=== PATIENT | female | born 1945 | race Caucasian/White ===

== ENCOUNTER 2022-09-26 09:37 | Inpatient (IN) ==
[2022-09-26] MEDS ORDERED: SODIUM CHLORIDE 0.9% 1000ML 500 ML IV ONE ×2 (10:13→10:50)
[2022-09-26] MEDS ORDERED: ONDANSETRON INJ 2 MG/ML 2 ML VIAL IV STA (10:13)
[2022-09-26] MEDS ORDERED: fentaNYL citrate PF 100 MCG/2 ML VIAL IV PRN (10:13)
--- NOTE | 2022-09-26 10:30 | Emergency Department Note ---
Impression & Plan Atrial fibrillation with rapid ventricular response, Pulmonary edema, Pleural effusion, Closed rib fracture, Compression fracture of body of thoracic vertebra, Compression fracture of lumbar vertebra ED Provider Note NAME: CHEMA CAMP AGE: 77 SEX: F : 1945 ARRIVES VIA: Walk-In INFORMANT: Patient, the patient's significant other ED PROVIDER(S): Isiah Higgins DO CHIEF COMPLAINT: Chest pain HPI: The patient is a 77-year-old female who presented to the emergency department for an evaluation of chest pain. The patient states that she started noticing left-sided chest pain over the course of the last few days. She has a history of a fall over the last couple weeks. She was seen by her family doctor and had an outpatient CT without contrast. This did show left-sided rib fractures. The patient states that she had another fall over the last few days as well. In this fall she fell backwards since that time she has been having increasing shortness of breath as well as left-sided chest pain. The pain is reproducible. She has had no lower extremity swelling or pain. She has no difficulty ambulating. She has noticed some shortness of breath with exertion. There is been no hemoptysis. ROS: See above HPI for pertinent positives & negatives. A total of 10 systems reviewed and were otherwise negative. PAST MEDICAL HISTORY: See Below PAST SURGICAL HISTORY: See Below FAMILY HISTORY: See Below SOCIAL HISTORY: See Below HOME MEDICATIONS: See Below ALLERGIES: See Below VITALS: See Below PHYSICAL EXAMINATION: GENERAL: The patient is awake and alert. The patient is somewhat anxious appearing. EYES: The conjunctivae are clear. The pupils are round and reactive. EARS, NOSE, MOUTH AND THROAT: The nose is without any evidence of any deformity. NECK: The neck is nontender and supple. RESPIRATORY: Normal respiratory effort is noted there is no evidence of wheezing rhonchi or rales CARDIOVASCULAR: Tachycardic heart sounds were noted to auscultation. There is no definite murmur. GASTROINTESTINAL: The abdomen is soft. Abdomen is nontender. BACK: No midline tenderness or or step-off noted range of motion in flexion extension as well as rotation no signs of muscle spasm noted MUSCULOSKELETAL/EXTREMITIES: There is no evidence of gross deformity full range of motion is noted in the hips and shoulders. There is tenderness to palpation of the left lateral rib cage. There is no crepitus. SKIN: There is no obvious evidence of any rash. There are no petechiae, pallor or cyanosis noted. NEUROLOGIC: Patient is awake alert and oriented x3. Strength was symmetric. Speech was clear. MEDICAL DECISION MAKING: The patient is a 77-year-old female who presented to the emergency department with her significant other for an evaluation of difficulty breathing. The patient has had frequent falls recently. She suffered rib fractures which were diagnosed as an outpatient by her primary care physician. The patient presented today because of worsening difficulty breathing. She was found to have bilateral pleural effusions as well as atrial fibrillation with RVR. The atrial fibrillation is a new diagnosis for her. She was treated with IV Cardizem. She was reevaluated multiple times. I discussed the patient's laboratory and radiographic studies with her as well as the on-call [facility]. Given her findings I do not feel that she would be stable for outpatient follow- up at this time and would likely be better managed as an inpatient. Triage Nursing notes reviewed. Prior medical records reviewed Vital Signs: reviewed and remarkable for tachycardia and hypertension. Differential diagnosis: Fracture, dislocation, contusion, intra-abdominal, pneumothorax, intrathoracic, intracranial, neurologic, compartment syndrome, rhabdomyolysis, as well as other pathologies. ER treatment provided: See below Diagnostics interpreted by me: ECG: EKG was obtained in the emergency department. My interpretation is atrial fibrillation at [address] segment abnormalities were noted. Fusion beats were also noted. There is no previous EKG for comparison. Cardiac Monitoring: An order was placed for continuous cardiac monitoring. The monitor shows a rate of 118 bpm with atrial fibrillation RVR. Laboratory studies: As stated above and show below. Imaging studies: See below. Radiographic imaging was reviewed by myself Consultation(s): I discussed this case with Dr. Menjivar who is on-call for the [facility] group ED COURSE: Procedures: none Critical Care: I have personally spent greater than 40 minutes of critical care time in the direct management of this patient. This includes bedside care, interpretation of diagnostic studies, and testing, discussion with consultants, patient, and family members, and other required patient management activities. This 40 minutes is in excess of all separately billable procedures. Past Med/Surg History Medical History Essential tremor Migraine Surgical History H/O: hysterectomy Family History Other Diabetes Social History Smoking Status: Never smoker Preferred Language: Irish Feels Safe at Home: Yes Allergies Allergies Allergy/AdvReac Type Severity Reaction Status Date / Time No Known Allergies Allergy Unverified 09/26/22 13:40 Home Meds Home Medications Medication Instructions Recorded Confirmed One-A-Day Womens Formula 1 tab PO DAILY 09/26/22 09/26/22 calcium carbonate 500 mg calcium 500 mg PO DAILY PRN Acid Reflux 09/26/22 09/26/22 (1,250 mg) chewable tablet metoprolol succinate 25 mg 25 mg PO HS 09/26/22 09/26/22 tablet,extended release 24 hr nortriptyline 10 mg capsule 20 mg PO HS 09/26/22 09/26/22 polyethylene glycol 3350 17 17 g PO DAILY PRN constipation 09/26/22 09/26/22 gram/dose oral powder (Miralax) primidone 50 mg tablet 150 mg PO TID 09/26/22 09/26/22 topiramate 25 mg tablet 25 mg PO BID 09/26/22 09/26/22 Results & Data (ED) Vital Signs Vital Signs - 24 hr 09/26/22 09:40 09/26/22 10:35 09/26/22 11:52 Temperature 36.6 C Temperature Source Temporal Artery Scan Pulse Rate 158 H 151 H Pulse Rate from SpO2 Sensor Respiratory Rate 18 Blood Pressure 157/108 H Blood Pressure Mean 124 Pulse Oximetry 97 95 Oxygen Delivery Method Room Air Sepsis Recent Fever Within 48 Hours No Sepsis New/Unexplained Change in Mental Status N/A Sepsis Action Taken by Nursing No Action Required 09/26/22 10:27 09/26/22 10:30 09/26/22 10:58 Temperature Temperature Source Pulse Rate 105 H 130 H 138 H Pulse Rate from SpO2 Sensor 144 H 123 H 136 H Respiratory Rate 30 H 29 H 25 H Blood Pressure Blood Pressure Mean Pulse Oximetry 96 96 92 Oxygen Delivery Method Sepsis Recent Fever Within 48 Hours Sepsis New/Unexplained Change in Mental Status Sepsis Action Taken by Nursing 09/26/22 10:58 09/26/22 11:00 09/26/22 11:49 Temperature Temperature Source Pulse Rate 159 H 130 H Pulse Rate from SpO2 Sensor 138 H 122 H Respiratory Rate 29 H Blood Pressure 134/112 H Blood Pressure Mean 119 Pulse Oximetry 94 Oxygen Delivery Method Sepsis Recent Fever Within 48 Hours Sepsis New/Unexplained Change in Mental Status Sepsis Action Taken by Nursing 09/26/22 11:50 09/26/22 11:50 09/26/22 12:00 Temperature Temperature Source Pulse Rate 123 H Pulse Rate from SpO2 Sensor 126 H Respiratory Rate 22 Blood Pressure 143/87 H 153/97 H Blood Pressure Mean 105 115 Pulse Oximetry 95 Oxygen Delivery Method Room Air Sepsis Recent Fever Within 48 Hours Sepsis New/Unexplained Change in Mental Status Sepsis Action Taken by Nursing 09/26/22 12:00 09/26/22 12:30 09/26/22 12:30 Temperature Temperature Source Pulse Rate 117 H 124 H Pulse Rate from SpO2 Sensor 122 H 122 H Respiratory Rate 25 H 23 Blood Pressure 145/102 H Blood Pressure Mean 116 Pulse Oximetry 95 93 Oxygen Delivery Method Sepsis Recent Fever Within 48 Hours Sepsis New/Unexplained Change in Mental Status Sepsis Action Taken by Nursing 09/26/22 13:00 09/26/22 13:00 09/26/22 13:30 Temperature Temperature Source Pulse Rate 107 H Pulse Rate from SpO2 Sensor 107 H Respiratory Rate 24 Blood Pressure 143/94 H 142/113 H Blood Pressure Mean 110 122 Pulse Oximetry 91 Oxygen Delivery Method Sepsis Recent Fever Within 48 Hours Sepsis New/Unexplained Change in Mental Status Sepsis Action Taken by Nursing 09/26/22 13:30 09/26/22 14:00 09/26/22 14:00 Temperature Temperature Source Pulse Rate 115 H 117 H Pulse Rate from SpO2 Sensor 115 H 123 H Respiratory Rate 30 H 24 Blood Pressure 161/121 H Blood Pressure Mean 134 Pulse Oximetry 94 95 Oxygen Delivery Method Sepsis Recent Fever Within 48 Hours Sepsis New/Unexplained Change in Mental Status Sepsis Action Taken by Nursing 09/26/22 14:30 09/26/22 14:30 09/26/22 15:00 Temperature Temperature Source Pulse Rate 128 H Pulse Rate from SpO2 Sensor 130 H Respiratory Rate 23 Blood Pressure 140/115 H 148/103 H Blood Pressure Mean 123 118 Pulse Oximetry 95 Oxygen Delivery Method Room Air Sepsis Recent Fever Within 48 Hours Sepsis New/Unexplained Change in Mental Status Sepsis Action Taken by Nursing 09/26/22 15:00 Temperature Temperature Source Pulse Rate 124 H Pulse Rate from SpO2 Sensor 132 H Respiratory Rate 25 H Blood Pressure Blood Pressure Mean Pulse Oximetry 95 Oxygen Delivery Method Room Air Sepsis Recent Fever Within 48 Hours Sepsis New/Unexplained Change in Mental Status Sepsis Action Taken by Residential Medications Current Medication List: was personally reviewed by me Laboratory Data Attestation: I reviewed the patient's lab results. 09/26/22 10:26 09/26/22 10: Lab Results 09/26/22 09/26/22 09/26/22 Range/Units 10:26 10: 10:26 WBC 4.02 L (4.8-10.8) K/ul RBC 4.69 (4.20-5.40) M/uL Hgb 15.9 (12.0-16.0) g/dl POC Hgb (12.0-16.0) g/dl Hct 47.3 H (37.0-47.0) % POC Hct (37-47) % MCV 100.9 H (80.0-100.0) fL MCH 33.9 (25.0-34.0) pg MCHC 33.6 (32.0-36.0) g/dL RDW Std Deviation 49.4 H (36.4-46.3) fL RDW Coeff of Katya 13.2 (11.5-14.5) % Plt Count 123 L (130-400) K/uL MPV 12.2 (9.4-12.4) fL Immature Gran % (Auto) 0.5 % Neut % (Auto) 74.3 % Lymph % (Auto) 16.2 % [place] % (Auto) 7.5 % Eos % (Auto) 1.0 % Baso % (Auto) 0.5 % Neut # (Auto) 2.99 (1.40-6.50) K/uL Lymph # (Auto) 0.65 L (1.2-3.4) K/uL [place] # (Auto) 0.30 (0.11-0.59) K/uL Eos # (Auto) 0.04 (0-0.50) K/uL Baso # (Auto) 0.02 (0-0.2) K/uL Immature Gran # (Auto) 0.02 (0.01-0.20) K/uL PT 12.3 H (9.0-12.0) Seconds INR 1.1 (0.9-1.1) APTT 27.1 (21.0-31.0) Seconds PTT Ratio 1.0 POC Sodium (135-144) mmol/L Sodium 142 (136-145) mmol/L POC Potassium (3.3-5.0) mmol/L Potassium 3.9 (3.5-5.1) mmol/L POC Chloride (101-112) mmol/L Chloride 106 (98-107) mmol/L Carbon Dioxide 25 (21-32) mmol/L POC Total CO2 (24-31) mmol/L Anion Gap 11 (3-11) POC Anion Gap (16-25) mmol/L POC BUN (7-18) mg/dl BUN 16 (6-23) mg/dl Creatinine 1.00 (0.6-1.2) mg/dl POC Creatinine (0.6-1.3) mg/dl Est Cr Clr Drug Dosing 38.2 ml/min Est GFR ( Amer) 63.4 ml/min Est GFR (Non-Af Amer) 54.7 ml/min BUN/Creatinine Ratio 16.0 (10-20) Glucose 112 H (70-99(Fasting)) mg/dl POC Glucose (other) (70-99) mg/dl Calcium 9.7 (8.6-10.3) mg/dl POC Ioniz Calcium Margarette (1.12-1.32) mmol/l Magnesium 1.8 (1.7-2.4) mg/dl Total Bilirubin 0.6 (0.2-1.0) mg/dl AST 40 H (13-39) U/L ALT 39 (7-52) U/L Alkaline Phosphatase 107 H (34-104) U/L Total Creatine Kinase 165 (26-192) U/L Troponin I High Sens 32.1 H (0-14) pg/ml Total Protein 6.9 (6.0-8.3) gm/dl Albumin 4.0 (3.4-5.0) gm/dl Globulin 2.9 (2.5-4.0) gm/dl Albumin/Globulin Ratio 1.4 (0.9-2) SARS-CoV-2, RNA, NAAT (NEGATIVE) 09/26/22 09/26/22 09/26/22 Range/Units 10:33 10:38 14:16 WBC (4.8-10.8) K/ul RBC (4.20-5.40) M/uL Hgb (12.0-16.0) g/dl POC Hgb 15.3 (12.0-16.0) g/dl Hct (37.0-47.0) % POC Hct 45 (37-47) % MCV (80.0-100.0) fL MCH (25.0-34.0) pg MCHC (32.0-36.0) g/dL RDW Std Deviation (36.4-46.3) fL RDW Coeff of Katya (11.5-14.5) % Plt Count (130-400) K/uL MPV (9.4-12.4) fL Immature Gran % (Auto) % Neut % (Auto) % Lymph % (Auto) % [place] % (Auto) % Eos % (Auto) % Baso % (Auto) % Neut # (Auto) (1.40-6.50) K/uL Lymph # (Auto) (1.2-3.4) K/uL [place] # (Auto) (0.11-0.59) K/uL Eos # (Auto) (0-0.50) K/uL Baso # (Auto) (0-0.2) K/uL Immature Gran # (Auto) (0.01-0.20) K/uL PT (9.0-12.0) Seconds INR (0.9-1.1) APTT (21.0-31.0) Seconds PTT Ratio POC Sodium 142 (135-144) mmol/L Sodium (136-145) mmol/L POC Potassium 3.2 L (3.3-5.0) mmol/L Potassium (3.5-5.1) mmol/L POC Chloride 106 (101-112) mmol/L Chloride (98-107) mmol/L Carbon Dioxide (21-32) mmol/L POC Total CO2 23 L (24-31) mmol/L Anion Gap (3-11) POC Anion Gap 17.0 (16-25) mmol/L POC BUN 15 (7-18) mg/dl BUN (6-23) mg/dl Creatinine (0.6-1.2) mg/dl POC Creatinine 1.0 (0.6-1.3) mg/dl Est Cr Clr Drug Dosing ml/min Est GFR ( Amer) ml/min Est GFR (Non-Af Amer) ml/min BUN/Creatinine Ratio (10-20) Glucose (70-99(Fasting)) mg/dl POC Glucose (other) 113 H (70-99) mg/dl Calcium (8.6-10.3) mg/dl POC Ioniz Calcium Margarette 1.17 (1.12-1.32) mmol/l Magnesium (1.7-2.4) mg/dl Total Bilirubin (0.2-1.0) mg/dl AST (13-39) U/L ALT (7-52) U/L Alkaline Phosphatase (34-104) U/L Total Creatine Kinase (26-192) U/L Troponin I High Sens 40.0 H (0-14) pg/ml Total Protein (6.0-8.3) gm/dl Albumin (3.4-5.0) gm/dl Globulin (2.5-4.0) gm/dl Albumin/Globulin Ratio (0.9-2) SARS-CoV-2, RNA, NAAT NEGATIVE (NEGATIVE) Administered Medications Fentanyl Citrate (Fentanyl Citrate Pf 100 Mcg/2 Ml Vial) 50 mcg IV Q15M PRN PRN Reason: Pain Stop: 10/10/22 10:12 Last Admin: 09/26/22 10:45 Dose: 50 mcg Documented By: DESTINEY Discontinued Medications Diltiazem HCl (Diltiazem Hcl 5 Mg/Ml 5 Ml Vial) 10 mg IV NOW STA Stop: 09/26/22 10:51 Last Admin: 09/26/22 10:59 Dose: 10 mg Documented By: MNIA Co-signed By: DESTINEY Diltiazem HCl (Diltiazem Hcl 5 Mg/Ml 5 Ml Vial) 10 mg IV NOW STA Stop: 09/26/22 12:42 Last Admin: 09/26/22 12:47 Dose: 10 mg Documented By: MINA Co-signed By: ELDA Sodium Chloride (Nss 1000ml) 500 mls @ 999 mls/hr IV .Q31M ONE Stop: 09/26/22 10:43 Last Infusion: 09/26/22 12:45 Dose: 0 mls/hr Documented By: Admin: 09/26/22 10:45 Dose: 999 mls/hr Documented By: DESTINEY Magnesium Sulfate/Dextrose (Magnesium Sulfate / D5w) 1 gm in 100 mls @ 100 mls/hr IV NOW STA Stop: 09/26/22 11:49 Last Infusion: 09/26/22 12:44 Dose: 0 mls/hr Documented By: Admin: 09/26/22 11:02 Dose: 100 mls/hr Documented By: MINA Sodium Chloride (Nss 1000ml) 500 mls @ 999 mls/hr IV .Q31M ONE Stop: 09/26/22 11:20 Last Infusion: 09/26/22 12:45 Dose: 0 mls/hr Documented By: Admin: 09/26/22 11:03 Dose: 999 mls/hr Documented By: MINA Ioversol (Optiray 320 500ml) 85 ml IV ONCE ONE Stop: 09/26/22 11:45 Last Admin: 09/26/22 11:36 Dose: 85 ml Documented By: HENNY Ondansetron HCl (Ondansetron Inj 2 Mg/Ml 2 Ml Vial) 4 mg IV NOW STA Stop: 09/26/22 10:14 Last Admin: 09/26/22 10:43 Dose: 4 mg Documented By: DESTINEY Imaging Data Attestation: I personally reviewed and interpreted this imaging study as follows: My Impression: CT of the head was obtained in the emergency department. My interpretation is no intracranial hemorrhage, no sign of mass effect, final report below. Radiologist's Impression: Abdomen/Pelvis CT 09/26/22 10:14 CT abd pelvis IV con only CLINICAL HISTORY: Trauma TECHNIQUE: Helical axial images of the abdomen and pelvis were obtained and displayed. Automated dose lowering techniques and/or adjustment according to patient size were utilized for this exam. This exam was performed with intravenous contrast. COMPARISON: None available at the time of this dictation. FINDINGS: Lower chest: For findings above the diaphragm, please see CT chest performed same day. Bilateral pleural calcifications are seen. Liver: Unremarkable. No focal lesions are seen. Gallbladder and biliary tree: No calcified gallstones. Normal caliber wall. No intra- or extrahepatic biliary ductal dilation. Pancreas: Unremarkable, no focal lesions. Spleen: Unremarkable. Adrenals: Unremarkable. Kidneys and ureters: Subcentimeter hypodensities are too small to characterize. Nonobstructive stones are seen bilaterally. Impression Bladder: Gas noted in the bladder, correlation for recent instrumentation is recommended. Reproductive organs: Patient is status post hysterectomy. Bowel: Diverticulosis is seen without evidence of diverticulitis. The appendix is normal. Lymph nodes Retroperitoneal: Unremarkable. Pelvic: Unremarkable. Mesenteric: Unremarkable. Peritoneum: Normal. Vessels: Unremarkable. Abdominal wall: Unremarkable. Bones: Subacute appearing fractures of the left lateral ribs partially seen. Degenerative changes are seen in the spine with grade 1 anterolisthesis at L5- S1. IMPRESSION: No intra-abdominal abnormalities are seen. Left-sided rib fractures appear subacute. No acute fractures are noted. ACT 112: Negative or not required by law. Electronically signed by: Franky Pimentel M.D. 09/26/2022 12:[address] 09/26/22 10:14 CT SCAN OF THE CERVICAL SPINE CLINICAL HISTORY: Trauma. COMPARISON STUDY: No priors. TECHNIQUE: CT scan of the cervical spine is performed from the skull base to the upper thoracic spine. Images are reviewed in the axial, sagittal, and coronal planes. IV contrast was not administered for this examination. A dose lowering technique was utilized adhering to the principles of ALARA. CT DOSE: 1796.31 mGy.cm FINDINGS: Skeletal structures: The skeletal structures are osteopenic. There is no evidence of fracture or subluxation involving the cervical spine. Vertebral body height and alignment are maintained. There is straightening of the cervical lordosis. Anterior osteophytes are seen throughout. The odontoid process and lateral masses are intact. The atlantoaxial articulation is preserved noting productive degenerative change. The spinous processes appear intact. There is moderate multilevel cervical spondylosis. Uncovertebral and facet arthropathy contribute to neural foraminal narrowing at several levels. Intervertebral discs: There is mild/moderate multilevel degenerative disc space narrowing, greatest at C5-C6 and C6-C7. Central canal: Posterior disc osteophyte complexes at C2-C3, C4-C5, C5-C6, and C6-C7 may contribute to acquired compromise of the central canal. Soft tissues: The prevertebral and paraspinous soft tissues are within normal limits. Calvarium: The visualized calvarium at the skull base appears intact. Brain parenchyma: Partially visualized brain parenchyma at the skull base is within normal limits. Mastoids: The mastoid air cells are well pneumatized. Lung apices: A layering right pleural effusion is partially imaged. IMPRESSION: 1. There is no evidence of fracture or subluxation involving the cervical spine. 2. Osteopenia and spondylitic changes above. 3. Right pleural effusion. ACT 112: Negative or not required by law. Electronically signed by: Sunday Vaughn M.D. 09/26/2022 12:[address] 09/26/22 10:14 CT head/brain wo con CLINICAL HISTORY: Trauma Technique: Contiguous axial CT images of the head were acquired from the base of the skull to the vertex without intravenous contrast administration. Images were viewed in brain, subdural and bone windows. Automated dose lowering techniques and/or adjustment according to patient size were utilized for this exam. Comparison: None available at the time of this dictation. Findings: The ventricles, basal cisterns, and cerebral sulci are normal. There is no acute intracranial hemorrhage or evidence of acute territorial infarction. Neither m ass effect, shift of the midline structures, nor abnormal extra-axial fluid collections are shown. Imaged portions of the paranasal sinuses and mastoid air cells are clear. The orbits appear normal. There are no acute fractures of the calvaria or scalp swelling. Impression: No acute intracranial hemorrhage, no evidence of acute territorial infarction or other acute intracranial disease process. ACT 112: Negative or not required by law. Electronically signed by: Franky Pimentel M.D. 09/26/2022 11:53 AM Chest CTA 09/26/22 10:18 CT angio chest PE protocol HISTORY: 77 years-old Female with PE. Acute shortness of breath TECHNIQUE: Multiple CTA images of the chest were obtained after the intravenous administration of 85 ml Optiray. Coronal and sagittal MIPS were obtained from the axial data set and were submitted for review. All measurements were obtained according to NASCET criteria. A dose lowering technique was utilized adhering to the principles of ALARA. COMPARISON: CT abdomen and pelvis of same day FINDINGS: CTA: Moderate to marked cardiomegaly. No large pericardial effusion. Suboptimal evaluation of the left heart structures and thoracic aorta secondary to contrast bolus timing. Mixing artifact within the pulmonary arterial tree which is suboptimally evaluated secondary to contrast bolus timing and respiratory motion artifact. No central pulmonary emboli are identified. CT CHEST: Subcentimeter hypodense right-sided thyroid nodule. There is suggestion of mild subcarinal lymphadenopathy. Bilateral calcified pleural plaques. Moderate right with small to moderate left pleural effusions. There is no pneumothorax. Respiratory motion artifact limits evaluation of the lungs. Bronchial wall with mild intralobular septal thickening. Mild dependent bibasilar consolidation. No suspicious pulmonary nodules or masses identified. Central airways appear patent. No acute process of the imaged upper abdomen. Mild generalized body wall edema. Degenerative changes of the shoulders and spine. Subtle acute nondisplaced fracture of the anterior left third rib. Subacute nondisplaced fractures of the left anterior fourth through seventh ribs. No acute displaced rib fracture is identified. Subtle likely chronic-appearing right-sided anterior rib fractures. Likely chronic partially imaged superior endplate compression deformities of the T2 and L1 vertebral bodies. IMPRESSION: 1. Limited exam as above. No central pulmonary emboli are identified. 2. Cardiomegaly with mild pulmonary edema, right greater than left layering pleural effusions with dependent bibasilar consolidation favoring atelectasis. 3. Subtle acute nondisplaced fracture of the anterior left third rib with subacute nondisplaced left anterior fourth through seventh rib fractures. 4. No pneumothorax. 5. 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 6. Likely chronic T2 and L1 compression deformities. ACT 112: Negative or not required by law. The above report was generated using voice recognition software. It may contain grammatical, syntax or spelling errors. Electronically signed by: Albert Vagn M.D. 09/26/2022 12:21 PM Discharge Plan Visit Data Chief Complaint: Fall Stated Complaint: RIB PAIN, FALL, BACK PAIN, SOB ED Provider: Isiah Higgins Discharge Problem: Atrial fibrillation with rapid ventricular response, Pulmonary edema, Pleural effusion, Closed rib fracture, Compression fracture of body of thoracic vertebra, Compression fracture of lumbar vertebra Patient Disposition: Being Evaluated by Hospitalist Forms Stand Alone Forms: [facility] Prescriptions Prescriptions: No Action primidone 50 mg tablet 150 mg PO TID topiramate 25 mg tablet 25 mg PO BID nortriptyline 10 mg capsule 20 mg PO HS calcium carbonate [Tums 500] 500 mg calcium (1,250 mg) Tablet,Chewable 500 mg PO DAILY PRN (Reason: Acid Reflux) metoprolol succinate 25 mg tablet extended release 24 hr 25 mg PO HS polyethylene glycol 3350 [Miralax] 17 gram/dose Powder 17 g PO DAILY PRN (Reason: constipation) One-A-Day Womens Formula 1 tab PO DAILY Referrals Referrals: Erick Ramos MD [Primary Care Provider] -
[2022-09-26 10:46] LABS: iSTAT Hemoglobin 15.3 g/dl (12.0-16.0); iSTAT Ionized Calcium 1.17 mmol/l (1.12-1.32); iSTAT Potassium 3.2 mmol/L (3.3-5.0)
[2022-09-26] MEDS ORDERED: MAGNESIUM SULFATE / D5W 1 GM/100 ML BAG IV STA (10:50)
[2022-09-26] MEDS ORDERED: dilTIAZem HCl 5 MG/ML 5 ML VIAL IV STA ×2 (10:50→12:41)
[2022-09-26 10:59] LABS: Basophils # (auto) 0.02 K/uL (0-0.2); Basophils % (auto) 0.5 %; Eosinophils # (auto) 0.04 K/uL (0-0.50); Hematocrit (blood only) 47.3 % (37.0-47.0); Hemoglobin 15.9 g/dl (12.0-16.0); Immature Granulocytes # (auto) 0.02 K/uL (0.01-0.20); Immature Granulocytes % (auto) 0.5 %; Lymphocytes # (auto) 0.65 K/uL (1.2-3.4); Lymphocytes % (auto) 16.2 %; Mean Corpuscular Hemoglobin 33.9 pg (25.0-34.0); Mean Corpuscular Hgb Conc 33.6 g/dL (32.0-36.0); Mean Corpuscular Volume 100.9 fL (80.0-100.0); Mean Platelet Volume 12.2 fL (9.4-12.4); Monocytes % (auto) 7.5 %; Neutrophils # (auto) 2.99 K/uL (1.40-6.50); Neutrophils % (auto) 74.3 %; Platelet Count 123 K/uL (130-400); RDW Coefficient of Variation 13.2 % (11.5-14.5); RDW Standard Deviation 49.4 fL (36.4-46.3); Red Blood Count 4.69 M/uL (4.20-5.40); White Blood Count 4.02 K/ul (4.8-10.8)
[2022-09-26 11:11] LABS: Albumin Globulin Ratio 1.4 (0.9-2); Bilirubin,Total 0.6 mg/dl (0.2-1.0); Creatinine Clr Calc Pharmacy 38.2 ml/min; Globulin 2.9 gm/dl (2.5-4.0); Potassium 3.9 mmol/L (3.5-5.1); Total Protein 6.9 gm/dl (6.0-8.3)
[2022-09-26 11:21] LABS: Calcium 9.7 mg/dl (8.6-10.3); Est GFR (African American) 63.4 ml/min; Est GFR (Non-African American) 54.7 ml/min; INR 1.1 (0.9-1.1); Magnesium 1.8 mg/dl (1.7-2.4); Partial Thromboplastin Time 27.1 Seconds (21.0-31.0); Prothrombin Time 12.3 Seconds (9.0-12.0)
[2022-09-26 11:27] LABS: Troponin I High Sensitivity 32.1 pg/ml (0-14)
[2022-09-26] MEDS ORDERED: OPTIRAY 320 500ml IV ONE (11:44)
--- NOTE | 2022-09-26 11:54 | CT Scan Report ---
CT head/brain wo con CLINICAL HISTORY: Trauma Technique: Contiguous axial CT images of the head were acquired from the base of the skull to the chuck tru without intravenous contrast administration. Images were viewed in brain, subdural and [facility] . Automated dose lowering techniques and/or adjustment according to patient size were utilized for this exam. Comparison: None available at the time of this dictation. Findings: The ventricles, basal cisterns, and cerebral sulci are normal. There is no acute intracranial hemorrh age or evidence of acute territorial infarction. Neither mass effect, shift of the midline structures , nor abnormal extra-axial fluid collections are shown. Imaged portions of the paranasal sinuses and mastoid air cells are clear. The orbits appear normal. There are no acute fractures of the calvaria or scalp swelling. Impression: No acute intracranial hemorrhage, no evidence of acute territorial infarction or other acute intracra nial disease process. ACT 112: Negative or not required by law. Electronically signed by: Franky Pimentel M.D. 09/26/2022 11:53 AM
--- NOTE | 2022-09-26 12:03 | CT Scan Report ---
CT SCAN OF THE CERVICAL SPINE CLINICAL HISTORY: Trauma. COMPARISON STUDY: No priors. TECHNIQUE: CT scan of the cervical spine is performed from the skull base to the upper thoracic spine . Images are reviewed in the axial, sagittal, and coronal planes. IV contrast was not administered fo r this examination. A dose lowering technique was utilized adhering to the principles of ALARA. CT DOSE: 1796.31 mGy.cm FINDINGS: Skeletal structures: The skeletal structures are osteopenic. There is no evidence of fracture or subl uxation involving the cervical spine. Vertebral body height and alignment are maintained. There is s traightening of the cervical lordosis. Anterior osteophytes are seen throughout. The odontoid process and lateral masses are intact. The atlantoaxial articulation is preserved noting productive degenera tive change. The spinous processes appear intact. There is moderate multilevel cervical spondylosis. Uncovertebral and facet arthropathy contribute to neural foraminal narrowing at several levels. Intervertebral discs: There is mild/moderate multilevel degenerative disc space narrowing, greatest a t C5-C6 and C6-C7. Central canal: Posterior disc osteophyte complexes at C2-C3, C4-C5, C5-C6, and C6-C7 may contribute t o acquired compromise of the central canal. Soft tissues: The prevertebral and paraspinous soft tissues are within normal limits. Calvarium: The visualized calvarium at the skull base appears intact. Brain parenchyma: Partially visualized brain parenchyma at the skull base is within normal limits. Mastoids: The mastoid air cells are well pneumatized. Lung apices: A layering right pleural effusion is partially imaged. IMPRESSION: 1. There is no evidence of fracture or subluxation involving the cervical spine. 2. Osteopenia and spondylitic changes above. 3. Right pleural effusion. ACT 112: Negative or not required by law. Electronically signed by: Sunday Vaughn M.D. 09/26/2022 12:01 PM
--- NOTE | 2022-09-26 12:04 | CT Scan Report ---
CT abd pelvis IV con only CLINICAL HISTORY: Trauma TECHNIQUE: Helical axial images of the abdomen and pelvis were obtained and displayed. Automated dose lowering techniques and/or adjustment according to patient size were utilized for this exam. This e xam was performed with intravenous contrast. COMPARISON: None available at the time of this dictation. FINDINGS: Lower chest: For findings above the diaphragm, please see CT chest performed same day. Bilateral ple ural calcifications are seen. Liver: Unremarkable. No focal lesions are seen. Gallbladder and biliary tree: No calcified gallstones. Normal caliber wall. No intra- or extrahepatic biliary ductal dilation. Pancreas: Unremarkable, no focal lesions. Spleen: Unremarkable. Adrenals: Unremarkable. Kidneys and ureters: Subcentimeter hypodensities are too small to characterize. Nonobstructive stones are seen bilaterally. Impression Bladder: Gas noted in the bladder, correlation for recent instrumentation is recommended. Reproductive organs: Patient is status post hysterectomy. Bowel: Diverticulosis is seen without evidence of diverticulitis. The appendix is normal. Lymph nodes Retroperitoneal: Unremarkable. Pelvic: Unremarkable. Mesenteric: Unremarkable. Peritoneum: Normal. Vessels: Unremarkable. Abdominal wall: Unremarkable. Bones: Subacute appearing fractures of the left lateral ribs partially seen. Degenerative changes are seen in the spine with grade 1 anterolisthesis at L5-S1. IMPRESSION: No intra-abdominal abnormalities are seen. Left-sided rib fractures appear subacute. No acute fractur es are noted. ACT 112: Negative or not required by law. Electronically signed by: Franky Pimentel M.D. 09/26/2022 12:03 PM
--- NOTE | 2022-09-26 12:23 | CT Scan Report ---
CT angio chest PE protocol HISTORY: 77 years-old Female with PE. Acute shortness of breath TECHNIQUE: Multiple CTA images of the chest were obtained after the intravenous administration of 85 ml Optiray. Coronal and sagittal MIPS were obtained from the axial data set and were submitted for r [employer]. All measurements were obtained according to NASCET criteria. A dose lowering technique was ut ilized adhering to the principles of ALARA. COMPARISON: CT abdomen and pelvis of same day FINDINGS: CTA: Moderate to marked cardiomegaly. No large pericardial effusion. Suboptimal evaluation of the left hea rt structures and thoracic aorta secondary to contrast bolus timing. Mixing artifact within the pulmo nary arterial tree which is suboptimally evaluated secondary to contrast bolus timing and respiratory motion artifact. No central pulmonary emboli are identified. CT CHEST: Subcentimeter hypodense right-sided thyroid nodule. There is suggestion of mild subcarinal lymphadeno pallavi. Bilateral calcified pleural plaques. Moderate right with small to moderate left pleural effusi ons. There is no pneumothorax. Respiratory motion artifact limits evaluation of the lungs. Bronchial wall with mild intralobular septal thickening. Mild dependent bibasilar consolidation. No suspicious pulmonary nodules or masses identified. Central airways appear patent. No acute process of the imaged upper abdomen. Mild generalized body wall edema. Degenerative changes of the shoulders and spine. Subtle acute nondisplaced fracture of the anterior left third rib. Subacu te nondisplaced fractures of the left anterior fourth through seventh ribs. No acute displaced rib fr acture is identified. Subtle likely chronic-appearing right-sided anterior rib fractures. Likely chronometer adjuster tre partially imaged superior endplate compression deformities of the T2 and L1 vertebral bodies. IMPRESSION: 1. Limited exam as above. No central pulmonary emboli are identified. 2. Cardiomegaly with mild pulmonary edema, right greater than left layering pleural effusions with de pendent bibasilar consolidation favoring atelectasis. 3. Subtle acute nondisplaced fracture of the anterior left third rib with subacute nondisplaced left anterior fourth through seventh rib fractures. 4. No pneumothorax. 5. 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 6. Likely chronic T2 and L1 compression deformities. ACT 112: Negative or not required by law. The above report was generated using voice recognition software. It may contain grammatical, syntax o r spelling errors. Electronically signed by: Albert Vang M.D. 09/26/2022 12:21 PM
--- NOTE | 2022-09-26 14:01 | Cardiology Consultation ---
Date of Consultation September 26, 2022 Assessment & Plan (1) New onset a-fib: (2) Ambulatory dysfunction: (3) Frequent falls: (4) Pleural effusion: Plan IMPRESSION: Frail 77 year old female with history of severe essential tremor noting frequent falls and BROWNLEE. Recent rib fractures. Found to be in new onset AFIB with RVR, HR in the 120-140s. [id number] score of 3 (age 3, female)- stroke risk of about 3.2% per year with AFIB High fall risk due to ambulatory dysfunction secondary to tremor. PLAN: 1. Will need to improve rates with AFIB- Increase metoprolol succinate to 25 mg twice daily (patient currently on 25 mg daily at home for tremor). 2. Discussed risk vs benefit of anticoagulation at length- there is significant concerned regarding her mobility and with her frequent falls she is a high bleeding risk. Patient and verbalize understanding and would like to proceed with anticoagulation at this time. In the short term we will start IV heparin while in patient- will need to assess the need for fci anticoagulation at discharge. Stop Aspirin- Most recent treatment guidelines suggest that the prophylactic benefit of aspirin is negligible. 3. Dyspneic with exertion and mild orthopnea- pleural effusion noted on chest CT. Will give x1 dose of 20 mg IV Lasix. Will repeat a potassium level, recommend maintaining a potassium goal of 4.0 and mag goal of 2.0. 4. Echo to assess LVEF and valvular status. Case discussed with Dr. Oreilly- will follow. Supervising Physician Co-Signing Physician Notes Patient was seen and examined met with patient and . Assessment and plan as outlined. Complex patient with underlying severe essential tremor with multiple falls and gait instability/ataxia. Recent falls with chest contusion and rib fractures Patient presented today with dyspnea and chest pain with rhythm demonstrating A- fib flutter with elevated ventricular response rate as a new finding. Patient unaware of tachyarrhythmias and suspect this may be sometime in duration Echocardiogram demonstrates moderate diffuse LV dysfunction as well as biatrial enlargement CT chest with pleural effusions and congestion Recommendations as above. IV heparin initiated. Will increase metoprolol succinate for further heart rate control treat underlying congestive heart failure and hypertension History of Present Illness Reason for Consultation: New onset atrial fibrillation Requesting Physician: Cami dumont History of Present Illness Frail 77-year-old female who initially presented to the [facility] emergency department due to a concerns of severe left sided rib pain and dyspnea with exertion. She has had progressive weakness over the spring and has had frequent falls resulting in left-sided rib fractures. Patient and attributes multiple falls to "missing the step" and "tripping in her garden". Patient states that she is normally very steady on her feet and does not use any ambulatory aids. In the emergency department patient was found to be in new onset atrial fibrillation with RVR, heart rates in the 120-140s. Was given 10 mg IV Diltiazem x2. Rates remain elevated. CTA of the chest was limited due to artifact however no central pulmonary emboli were identified. Mild pulmonary edema noted with right greater than left pleural effusions. No pneumothorax. Subacute rib fractures noted on the left side. 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 Head CT without acute findings. Upon entrance into the room patient resting in bed- pain lessened since receiving IV fentanyl. Ongoing shortness of breath and occasional chest tightness. No palpitations. Denies lightheadedness. Nonsmoker- notes asbestos exposure as a teen. No alcohol use. Denies any prior cardiac history, No history of rheumatic fever. No history of CVA. Past medical history: Severe essential tremor, follows with neurology-on metoprolol History of migraines Frequent falls Allergies Allergy/AdvReac Type Severity Reaction Status Date / Time No Known Allergies Allergy Unverified 09/26/22 13:40 Home Medications Medication Instructions Recorded Confirmed Type One-A-Day Womens Formula 1 tab PO DAILY 09/26/22 09/26/22 History calcium carbonate 500 mg calcium 500 mg PO DAILY PRN Acid Reflux 09/26/22 09/26/22 History (1,250 mg) chewable tablet metoprolol succinate 25 mg 25 mg PO HS 09/26/22 09/26/22 History tablet,extended release 24 hr nortriptyline 10 mg capsule 20 mg PO HS 09/26/22 09/26/22 History polyethylene glycol 3350 17 17 g PO DAILY PRN constipation 09/26/22 09/26/22 History gram/dose oral powder (Miralax) primidone 50 mg tablet 150 mg PO TID 09/26/22 09/26/22 History topiramate 25 mg tablet 25 mg PO BID 09/26/22 09/26/22 History Patient History Medical History Essential tremor Migraine Surgical History H/O: hysterectomy Family History Other Diabetes Social History Smoking Status: Never smoker Hx Alcohol Use: No Hx Substance Use: No Preferred Language: Turkmen Gathering Machine Feeder Required: No Beliefs That Will Affect Care: None Current Living Situation: Spouse Other Information That Helps Us Care for You: No Feels Safe at Home: Yes Safety Concerns: Feels Safe At This Time Assistive Devices: Walker Review of Systems Review of Systems: All systems reviewed & are unremarkable except as noted in HPI & below Physical Exam Constitutional: + thin and + frail appearing; no acute distress Neck: normal visual inspection and trachea midline Respiratory: normal respiratory effort; no cough Auscultation: + diminished lung sounds and + rales (R>L ) Cardiovascular: Rate/Rhythm: + tachycardic and + irregularly irregular Heart Sounds: normal S1 and normal S2; no murmur Vessels: no JVD Extremities: no edema Gastrointestinal (Abdomen): normal bowel sounds, soft, nontender, no hepatosplenomegaly Skin: no rashes, warm and dry Neurologic: Motor/Sensory: + tremor (severe) Psychiatric: A+Ox3, euthymic affect (at times forgetful) Motor Behavior: + tremor Results & Data Vital Signs (Past 12 Hours) Vital Signs Temp Pulse Resp BP Pulse Ox O2 Del Method 09/26/22 12:00 117 H 25 H 95 09/26/22 12:00 153/97 H 09/26/22 11:50 143/87 H 09/26/22 11:50 123 H 22 95 Room Air 09/26/22 11:49 130 H 09/26/22 11:00 159 H 29 H 94 09/26/22 10:58 134/112 H 09/26/22 10:58 138 H 25 H 92 09/26/22 10:30 130 H 29 H 96 09/26/22 10:27 105 H 30 H 96 09/26/22 11:52 95 Room Air 09/26/22 10:35 151 H 09/26/22 09:40 36.6 C 158 H 18 157/108 H 97 Laboratory Results Cardiac Enzymes 09/26/22 Range/Units 10:26 AST 40 H (13-39) U/L Troponin I High Sens 32.1 H (0-14) pg/ml Coagulation 09/26/22 Range/Units 10:26 PT 12.3 H (9.0-12.0) Seconds APTT 27.1 (21.0-31.0) Seconds CBC 09/26/22 Range/Units 10:26 WBC 4.02 L (4.8-10.8) K/ul RBC 4.69 (4.20-5.40) M/uL Hgb 15.9 (12.0-16.0) g/dl Hct 47.3 H (37.0-47.0) % Plt Count 123 L (130-400) K/uL Neut # (Auto) 2.99 (1.40-6.50) K/uL Lymph # (Auto) 0.65 L (1.2-3.4) K/uL [place] # (Auto) 0.30 (0.11-0.59) K/uL Eos # (Auto) 0.04 (0-0.50) K/uL Baso # (Auto) 0.02 (0-0.2) K/uL Comprehensive Metabolic Panel 09/26/22 Range/Units 10:26 Sodium 142 (136-145) mmol/L Potassium 3.9 (3.5-5.1) mmol/L Chloride 106 (98-107) mmol/L Carbon Dioxide 25 (21-32) mmol/L BUN 16 (6-23) mg/dl Creatinine 1.00 (0.6-1.2) mg/dl Glucose 112 H (70-99(Fasting)) mg/dl Calcium 9.7 (8.6-10.3) mg/dl AST 40 H (13-39) U/L ALT 39 (7-52) U/L Alkaline Phosphatase 107 H (34-104) U/L Total Protein 6.9 (6.0-8.3) gm/dl Albumin 4.0 (3.4-5.0) gm/dl Intake and Output 09/25/22 09/26/22 09/26/22 22:59 06:59 14:59 Intake Total 1100 / 1100 Balance 1100 / 1100 Intake: IV 1100 / 1100 Magnesium Sulfate / D5w 1 gm In 100 / 100 100 ml @ 100 mls/hr IV NOW STA Rx#:[id number] Sodium Chloride 0.9% 1000ML 500 1000 / 1000 ml @ 999 mls/hr IV .Q31M ONE Rx#:[id number] Other: Weight 53.6 kg Weight Measurement Method Chair Scale Patient Weight 09/27/22 06:59 Weight 53.6 kg
--- NOTE | 2022-09-26 14:15 | History & Physical Report ---
Date of Service September 26, 2022 Assessment & Plan (1) New onset a-fib: (2) Atrial fibrillation with rapid ventricular response: (3) Fall: (4) Ambulatory dysfunction: (5) Closed rib fracture: (6) Essential tremor: (7) Migraine: Plan New Onset Afib with RVR: -no prior hx of cardiac arrhythmia -CHADSVASc of 3 - pt is already on metoprolol XL 25mg hs for essential tremor --- will do Metoprolol tartrate 25mg BID for now --- I do not think pt is a good candidate for AC due to tremors and recent multiple falls --- will start pt on aspirin 81mg daily -trop elevated: will trend ---- denied any CP -will obtain Echo ----- CT chest showed cardiomegaly and pulm edema ----- pt did not appear fluid overloaded therefore will hold off on initiating Lasix -cardiology consult -EKG AM -will do lovenox for DVT PPx Recent multiple falls with subacute L ribs fracture: -CTA chest: Cardiomegaly with mild pulmonary edema, right greater than left layering pleural effusions with dependent bibasilar consolidation favoring atelectasis ---- pt did have pleural effusion from CT chest on 08/2022 -falls likely 2/2 tremor +/- afib -pain is better with fentanyl -will do lidocaine patch -Incentive ynes Q4hr -will do morphine 1mg q8 prn for severe pain -PT/OT Essential tremor: -pt is on Primidone TID and metoprolol XL 25mg daily --- will continue primidone and changed metoprolol to tartrate 25mg BID for now -PT/OT eval Migraine: -will continue Topiramate and Nortriptyline ---- for now will continue nortriptyline qhs but recommend neurology outpt follow to potential change due to recent falls Diet: heart healthy- chopped DVT PPx:Lovenox Code Status:FULL CODE Emergency Contact: -Mr. Vaughn [phone] History of Present Illness Chief Complaint: fall and SOB Primary Care Provider: Erick Ramos MD Pt is a 77 y/o F with hx of essential tremor, Migraine, memory loss (no official dx of dementia) and recent hx of fall with multiple L chest wall ribs fracture (1 month ago) came to the ER with worsening SOB. Per pt and pt was doing better with the rib fracture but pt had another mechanical fall 5 days ago since then pt has been having worsening SOB and L mid posterior back pain with ambulatory dysfunction. During the fall: no LOC or Head trauma. Denied any palpitation or dizziness or CP prior to fall. Denied any hx of AR, CVA, CAD, GI bleed or prior hx of afib. Pt is taking multiple medications for essential tremor but still having slight worsening of tremor per ER course: Dilt 10x2 (for afib with RVR), fentanyl, Zofran, Mg sul 1g and 1L NS CT chest (08/25/2022): 1. Acute to subacute appearing minimally displaced fractures or with angulation deformities of the left 4th-7th ribs. No pneumothorax or hemothorax. 2. Small effusions, right greater than left. Allergies Allergy/AdvReac Type Severity Reaction Status Date / Time No Known Allergies Allergy Unverified 09/26/22 13:40 Home Medications Medication Instructions Recorded Confirmed Type One-A-Day Womens Formula 1 tab PO DAILY 09/26/22 09/26/22 History calcium carbonate 500 mg calcium 500 mg PO DAILY PRN Acid Reflux 09/26/22 09/26/22 History (1,250 mg) chewable tablet metoprolol succinate 25 mg 25 mg PO HS 09/26/22 09/26/22 History tablet,extended release 24 hr nortriptyline 10 mg capsule 20 mg PO HS 09/26/22 09/26/22 History polyethylene glycol 3350 17 17 g PO DAILY PRN constipation 09/26/22 09/26/22 History gram/dose oral powder (Miralax) primidone 50 mg tablet 150 mg PO TID 09/26/22 09/26/22 History topiramate 25 mg tablet 25 mg PO BID 09/26/22 09/26/22 History Past Med/Surg History Medical History Essential tremor Migraine Surgical History H/O: hysterectomy Family History Other Diabetes Social History Smoking Status: Never smoker Preferred Language: [place] Feels Safe at Home: Yes Review of Systems Review of Systems: At least 10 Review of systems were reviewed and all negative except as indicated in HPI Physical Exam Physical Exam: General:. NAD, well developed, well nourished, average body habitus HEENT:. Normocephalic and atraumatic, Normal Conjunctiva, EOMI, Sclera is non- icteric Lungs:.b/l lower lobe rales,No signs of respiratory distress, no wheezing Heart:.in afib Abdominal:. ND, Soft, NT MSK:.TTP of the L lateral chest wall, no chest wall deformities, No leg edema Psych:AAOx2 (person and place), normal affect Results & Data Results & Data Vital Signs (Past 12 Hours) Vital Signs Temp Pulse Resp BP Pulse Ox O2 Del Method 09/26/22 12:00 117 H 25 H 95 09/26/22 12:00 153/97 H 09/26/22 11:50 143/87 H 09/26/22 11:50 123 H 22 95 Room Air 09/26/22 11:49 130 H 09/26/22 11:00 159 H 29 H 94 09/26/22 10:58 134/112 H 09/26/22 10:58 138 H 25 H 92 09/26/22 10:30 130 H 29 H 96 09/26/22 10:27 105 H 30 H 96 09/26/22 11:52 95 Room Air 09/26/22 10:35 151 H 09/26/22 09:40 36.6 C 158 H 18 157/108 H 97 Laboratory Results Short CBC 09/26/22 Range/Units 10:26 WBC 4.02 L (4.8-10.8) K/ul Hgb 15.9 (12.0-16.0) g/dl Hct 47.3 H (37.0-47.0) % Plt Count 123 L (130-400) K/uL BMP 09/26/22 10:26 Sodium 142 Potassium 3.9 Chloride 106 Carbon Dioxide 25 BUN 16 Creatinine 1.00 Glucose 112 H Calcium 9.7 Cardiac Enzymes 09/26/22 Range/Units 10:26 Total Creatine Kinase 165 (26-192) U/L Liver Function 09/26/22 Range/Units 10:26 Total Bilirubin 0.6 (0.2-1.0) mg/dl AST 40 H (13-39) U/L ALT 39 (7-52) U/L Alkaline Phosphatase 107 H (34-104) U/L Albumin 4.0 (3.4-5.0) gm/dl Diagnostic Findings Abdomen/Pelvis CT 09/26/22 10:14 CT abd pelvis IV con only CLINICAL HISTORY: Trauma TECHNIQUE: Helical axial images of the abdomen and pelvis were obtained and displayed. Automated dose lowering techniques and/or adjustment according to patient size were utilized for this exam. This exam was performed with intravenous contrast. COMPARISON: None available at the time of this dictation. FINDINGS: Lower chest: For findings above the diaphragm, please see CT chest performed same day. Bilateral pleural calcifications are seen. Liver: Unremarkable. No focal lesions are seen. Gallbladder and biliary tree: No calcified gallstones. Normal caliber wall. No intra- or extrahepatic biliary ductal dilation. Pancreas: Unremarkable, no focal lesions. Spleen: Unremarkable. Adrenals: Unremarkable. Kidneys and ureters: Subcentimeter hypodensities are too small to characterize. Nonobstructive stones are seen bilaterally. Impression Bladder: Gas noted in the bladder, correlation for recent instrumentation is r ecommended. Reproductive organs: Patient is status post hysterectomy. Bowel: Diverticulosis is seen without evidence of diverticulitis. The appendix is normal. Lymph nodes Retroperitoneal: Unremarkable. Pelvic: Unremarkable. Mesenteric: Unremarkable. Peritoneum: Normal. Vessels: Unremarkable. Abdominal wall: Unremarkable. Bones: Subacute appearing fractures of the left lateral ribs partially seen. Degenerative changes are seen in the spine with grade 1 anterolisthesis at L5- S1. IMPRESSION: No intra-abdominal abnormalities are seen. Left-sided rib fractures appear subacute. No acute fractures are noted. ACT 112: Negative or not required by law. Electronically signed by: Franky Pimentel M.D. 09/26/2022 12:[address] 09/26/22 10:14 CT SCAN OF THE CERVICAL SPINE CLINICAL HISTORY: Trauma. COMPARISON STUDY: No priors. TECHNIQUE: CT scan of the cervical spine is performed from the skull base to the upper thoracic spine. Images are reviewed in the axial, sagittal, and coronal planes. IV contrast was not administered for this examination. A dose lowering technique was utilized adhering to the principles of ALARA. CT DOSE: 1796.31 mGy.cm FINDINGS: Skeletal structures: The skeletal structures are osteopenic. There is no evidence of fracture or subluxation involving the cervical spine. Vertebral body height and alignment are maintained. There is straightening of the cervical lordosis. Anterior osteophytes are seen throughout. The odontoid process and lateral masses are intact. The atlantoaxial articulation is preserved noting productive degenerative change. The spinous processes appear intact. There is moderate multilevel cervical spondylosis. Uncovertebral and facet arthropathy contribute to neural foraminal narrowing at several levels. Intervertebral discs: There is mild/moderate multilevel degenerative disc space narrowing, greatest at C5-C6 and C6-C7. Central canal: Posterior disc osteophyte complexes at C2-C3, C4-C5, C5-C6, and C6-C7 may contribute to acquired compromise of the central canal. Soft tissues: The prevertebral and paraspinous soft tissues are within normal limits. Calvarium: The visualized calvarium at the skull base appears intact. Brain parenchyma: Partially visualized brain parenchyma at the skull base is within normal limits. Mastoids: The mastoid air cells are well pneumatized. Lung apices: A layering right pleural effusion is partially imaged. IMPRESSION: 1. There is no evidence of fracture or subluxation involving the cervical spine. 2. Osteopenia and spondylitic changes above. 3. Right pleural effusion. ACT 112: Negative or not required by law. Electronically signed by: Sunday Vaughn M.D. 09/26/2022 12:[address] 09/26/22 10:14 CT head/brain wo con CLINICAL HISTORY: Trauma Technique: Contiguous axial CT images of the head were acquired from the base of the skull to the vertex without intravenous contrast administration. Images were viewed in brain, subdural and bone windows. Automated dose lowering techniques and/or adjustment according to patient size were utilized for this exam. Comparison: None available at the time of this dictation. Findings: The ventricles, basal cisterns, and cerebral sulci are normal. There is no acute intracranial hemorrhage or evidence of acute territorial infarction. Neither mass effect, shift of the midline structures, nor abnormal extra-axial fluid collections are shown. Imaged portions of the paranasal sinuses and mastoid air cells are clear. The orbits appear normal. There are no acute fractures of the calvaria or scalp swelling. Impression: No acute intracranial hemorrhage, no evidence of acute territorial infarction or other acute intracranial disease process. ACT 112: Negative or not required by law. Electronically signed by: Franky Pimentel M.D. 09/26/2022 11:53 AM Chest CTA 09/26/22 10:18 CT angio chest PE protocol HISTORY: 77 years-old Female with PE. Acute shortness of breath TECHNIQUE: Multiple CTA images of the chest were obtained after the intravenous administration of 85 ml Optiray. Coronal and sagittal MIPS were obtained from the axial data set and were submitted for review. All measurements were obtained according to NASCET criteria. A dose lowering technique was utilized adhering to the principles of ALARA. COMPARISON: CT abdomen and pelvis of same day FINDINGS: CTA: Moderate to marked cardiomegaly. No large pericardial effusion. Suboptimal evaluation of the left heart structures and thoracic aorta secondary to contrast bolus timing. Mixing artifact within the pulmonary arterial tree which is suboptimally evaluated secondary to contrast bolus timing and respiratory motion artifact. No central pulmonary emboli are identified. CT CHEST: Subcentimeter hypodense right-sided thyroid nodule. There is suggestion of mild subcarinal lymphadenopathy. Bilateral calcified pleural plaques. Moderate right with small to moderate left pleural effusions. There is no pneumothorax. Respiratory motion artifact limits evaluation of the lungs. Bronchial wall with mild intralobular septal thickening. Mild dependent bibasilar consolidation. No suspicious pulmonary nodules or masses identified. Central airways appear patent. No acute process of the imaged upper abdomen. Mild generalized body wall edema. Degenerative changes of the shoulders and spine. Subtle acute nondisplaced fracture of the anterior left third rib. Subacute nondisplaced fractures of the left anterior fourth through seventh ribs. No acute displaced rib fracture is identified. Subtle likely chronic-appearing right-sided anterior rib fractures. Likely chronic partially imaged superior endplate compression deformities of the T2 and L1 vertebral bodies. IMPRESSION: 1. Limited exam as above. No central pulmonary emboli are identified. 2. Cardiomegaly with mild pulmonary edema, right greater than left layering pleural effusions with dependent bibasilar consolidation favoring atelectasis. 3. Subtle acute nondisplaced fracture of the anterior left third rib with subacute nondisplaced left anterior fourth through seventh rib fractures. 4. No pneumothorax. 5. 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 6. Likely chronic T2 and L1 compression deformities. ACT 112: Negative or not required by law. The above report was generated using voice recognition software. It may contain grammatical, syntax or spelling errors. Electronically signed by: Albert Vang M.D. 09/26/2022 12:21 PM Code Status & VTE Plan VTE Prophylaxis Plan VTE Prophylaxis will be ordered: Yes (5) Closed rib fracture Encounter type: initial encounter Laterality: left Rib fracture type: multiple ribs Qualified Code(s): S22.42XA - Multiple fractures of ribs, left side, initial encounter for closed fracture
[2022-09-26] MEDS ORDERED: Heparin IV Adult Wt-Based Standard *NO* Bolus Protocol IV SCH (14:55)
[2022-09-26] MEDS ORDERED: FUROSEMIDE INJ 20 MG/2 ML VIAL IV ONE (15:00)
[2022-09-26 15:26] LABS: Potassium 4.1 mmol/L (3.5-5.1)
[2022-09-26] MEDS ORDERED: ENOXAPARIN INJ 40 MG/0.4 ML SYR SQ SCH (16:20)
[2022-09-26] MEDS ORDERED: MoRPHine SULFATE 2 MG/ML CARP IV PRN (16:20)
[2022-09-26] MEDS ORDERED: POLYETHYLENE (MIRALAX) 17 GM PACK PO PRN (16:20)
[2022-09-26] MEDS: HEPARIN SODIUM/DEXTROSE 25,000 UNITS/500 ML BAG IV SCH (17:08)
[2022-09-26] MEDS: LIDOCAINE 5% 1 PATCH TD SCH (17:09)
[2022-09-26] MEDS: PRIMIDONE 50 MG TAB PO SCH ×2 (17:14→20:23)
[2022-09-26] MEDS: TOPIRAMATE 25 MG TAB PO SCH (20:22)
[2022-09-26] MEDS: NORTRIPTYLINE HCL 10 MG CAP PO SCH (20:23)
--- NOTE | 2022-09-26 20:24 | Electrocardiogram Report ---
Test Reason : Blood Pressure : / mmHG Vent. Rate : 140 BPM Atrial Rate : 000 BPM P-R Int : 000 ms QRS Dur : 080 ms QT Int : 336 ms P-R-T Axes : 000 120 -80 degrees QTc Int : 512 ms Atrial fibrillation with rapid ventricular response Right axis deviation Abnormal ECG No previous ECGs available Confirmed by Mario Sol ([id number]) on 09/26/2022 8:23:55 PM Referred By: Confirmed By:Torrey Sol
[2022-09-26] MEDS ORDERED: METOPROLOL SUCC 25MG EXT REL TAB PO SCH (21:00)
[2022-09-26] MEDS ORDERED: METOPROLOL TARTRATE 25 MG TAB PO SCH (21:00)
[2022-09-26] MEDS: ACETAMINOPHEN 325 MG TAB PO PRN (21:42)
[2022-09-26 22:30] LABS: Appearance Urine Clear (Clear); Bacteria Urine Automated 4+ (Negative); Bilirubin Urine Negative (Negative); Blood Urine Trace (Negative); Color Urine Dark Yellow; Glucose Urine UA Negative (Negative); Ketones Urine Trace (Negative); Leukocyte Esterase Urine Negative (Negative); Nitrite Urine Positive (Negative); Protein Urine 1+ (Negative); RBC Urine Automated 0-4 /hpf (0-4); Specific Gravity Urine > 1.045 (1.000-1.030); Urobilinogen Urine Negative (Negative); WBC Urine Automated >30 /hpf (0-5); pH Urine 5.5 (4.5-7.5)
[2022-09-27 00:25] LABS: Partial Thromboplastin Time 55.8 Seconds (21.0-31.0)
[2022-09-27 06:13] LABS: Basophils # (auto) 0.02 K/uL (0-0.2); Basophils % (auto) 0.6 %; Eosinophils % (auto) 3.2 %; Hematocrit (blood only) 41.2 % (37.0-47.0); Hemoglobin 14.2 g/dl (12.0-16.0); Immature Granulocytes # (auto) 0.01 K/uL (0.01-0.20); Immature Granulocytes % (auto) 0.3 %; Lymphocytes # (auto) 1.33 K/uL (1.2-3.4); Lymphocytes % (auto) 42.2 %; Mean Corpuscular Hemoglobin 34.4 pg (25.0-34.0); Mean Corpuscular Hgb Conc 34.5 g/dL (32.0-36.0); Mean Corpuscular Volume 99.8 fL (80.0-100.0); Mean Platelet Volume 12.3 fL (9.4-12.4); Monocytes # (auto) 0.36 K/uL (0.11-0.59); Monocytes % (auto) 11.4 %; Neutrophils # (auto) 1.33 K/uL (1.40-6.50); Neutrophils % (auto) 42.3 %; Platelet Count 100 K/uL (130-400); RDW Coefficient of Variation 13.4 % (11.5-14.5); RDW Standard Deviation 49.4 fL (36.4-46.3); Red Blood Count 4.13 M/uL (4.20-5.40); White Blood Count 3.15 K/ul (4.8-10.8)
[2022-09-27 06:28] LABS: Albumin Globulin Ratio 1.4 (0.9-2); Albumin Level 3.3 gm/dl (3.4-5.0); BUN Creatinine Ratio 15.2 (10-20); Bilirubin,Total 0.5 mg/dl (0.2-1.0); Calcium 8.9 mg/dl (8.6-10.3); Chol HDL Ratio 1.9 (0-5); Creatinine Clr Calc Pharmacy 38.2 ml/min; Est GFR (African American) 64.2 ml/min; Est GFR (Non-African American) 55.4 ml/min; Globulin 2.3 gm/dl (2.5-4.0); Magnesium 2.1 mg/dl (1.7-2.4); Total Protein 5.6 gm/dl (6.0-8.3)
[2022-09-27 06:50] LABS: Partial Thromboplastin Ratio 3.4
[2022-09-27 07:16] LABS: Partial Thromboplastin Time 96.1 Seconds (21.0-31.0)
[2022-09-27] MEDS: TOPIRAMATE 25 MG TAB PO SCH ×2 (08:41→20:02)
[2022-09-27] MEDS: PRIMIDONE 50 MG TAB PO SCH ×3 (08:41→20:02)
[2022-09-27] MEDS: LIDOCAINE 5% 1 PATCH TD SCH (08:41)
[2022-09-27] MEDS: CEROVITE ADV FORMULA TAB PO SCH (08:42)
--- NOTE | 2022-09-27 08:42 | Hospitalist Progress Note ---
Date of Service September 27, 2022 Assessment & Plan (1) New onset a-fib: Plan: Likely contributing to her shortness of breath. Rate control started with Metoprolol which is being titrated. She is anticoagulated on heparin. Will defer to cardiology on rate vs rhythm control strategy. Gave additional Lopressor 5mg IV this afternoon for her elevated HRs in the 140-150s. (2) Fall: Plan: Multiple recent falls. Likely multiple factors contributing. PT/OT (3) Ambulatory dysfunction: Plan: PT/OT as above (4) Closed rib fracture: Plan: 2/2 recent fall. Cont supportive care with lidocaine patch. Tylenol or other pain meds as needed. (5) Essential tremor: Plan: chronic, stable. May be contributing to falls. Continues on primidone per home regimen. (6) Migraine: Plan: chronic, stable. No migraine at this time. Cont topamax and nortriptyline per home regimen. DVT proph: heparin drip Full Code Dispo-pending PT/OT recommendations Gardenia Cheng DO [facility] Hospitalist Admission and Anticipated Discharge Date Admission Date: September 26, 2022 Subjective 77 yo F with essential tremor presents to the ER with worsening SOB. she reports 3-4 falls since July 2022, and states that her SOB has been present since then she is SOB with exertion and after excessive speaking today she reports feeling about the same and currently her HR is in the 140-150s She reports having a headache that is not improved after tylenol She reports a h/o migraines, but this is not one She takes Excedrin at home per her report. Reports 5 days of not eating 2/2 no appetite prior to arrival She was having regurgitation after eating previously, which has now returned with lunch today She is not reporting any issues with swallowing. Review of Systems Review of Systems: All systems were reviewed and negative except as indicated on subjective above. Physical Exam Physical Exam: CONSTITUTIONAL: WNWD, vitals as above, generally well-appearing, NAD EYES: normal conjunctivae, no scleral icterus ENT: external ear and nose normal, oropharynx clear NECK: trachea midline RESPIRATORY: clear to auscultation bilaterally, no crackles, rales or wheezes, normal respiratory effort CARDIOVASCULAR: irregular tachy rate and irregular rhythm, S1 and 2 heard without murmurs, gallops or rubs, no JVD, no peripheral edema CHEST: inspection of chest was normal GASTROINTESTINAL: soft, nontender, ND, no guarding MUSCULOSKELETAL: strength 5/5 throughout, head is normocephalic and atraumatic SKIN: warm and dry NEUROLOGIC: general tremulousness, voice is shaky, CN 2-12 grossly intact, no sensory deficit, normal cognition, normal speech PSYCHIATRIC: alert cooperative and oriented to person, place and time. Euthymic mood, makes good eye contact, language grossly intact, recent and remote memory grossly intact. Results & Data Results & Data Vital Signs (Past 12 Hours) Vital Signs Temp Pulse Pulse Resp BP Pulse Ox O2 Del Method 09/27/22 08:29 36.5 C 108 H 18 141/66 H 97 Room Air 09/27/22 02:49 36.4 C L 119 H 19 137/87 93 Room Air 09/26/22 23:33 132 H 09/26/22 22:51 36.7 C 115 H 22 129/81 92 Room Air Laboratory Results Short CBC 09/26/22 09/27/22 Range/Units 10:26 05:48 WBC 4.02 L 3.15 L (4.8-10.8) K/ul Hgb 15.9 14.2 (12.0-16.0) g/dl Hct 47.3 H 41.2 (37.0-47.0) % Plt Count 123 L 100 L (130-400) K/uL BMP 09/26/22 09/26/22 09/27/22 10:26 14:16 05:48 Sodium 142 141 Potassium 3.9 4.1 5.0 D Chloride 106 109 H Carbon Dioxide 25 27 BUN 16 15 Creatinine 1.00 0.99 Glucose 112 H 99 Calcium 9.7 8.9 Cardiac Enzymes 09/26/22 Range/Units 10:26 Total Creatine Kinase 165 (26-192) U/L Liver Function 09/26/22 09/27/22 Range/Units 10:26 05:48 Total Bilirubin 0.6 0.5 (0.2-1.0) mg/dl AST 40 H 31 (13-39) U/L ALT 39 30 (7-52) U/L Alkaline Phosphatase 107 H 85 (34-104) U/L Albumin 4.0 3.3 L (3.4-5.0) gm/dl Urine 09/26/22 Range/Units 21:36 Urine Color Dark Yellow Urine Appearance Clear (Clear) Urine pH 5.5 (4.5-7.5) Ur Specific [place] > 1.045 H (1.000-1.030) Urine Protein 1+ H (Negative) Urine Glucose (UA) Negative (Negative) Medications Administered Current Inpatient Medications Acetaminophen (Acetaminophen 325 Mg Tab) 650 mg PO Q4H PRN PRN Reason: pain/fever Stop: 10/26/22 16:19 Last Admin: 09/26/22 21:42 Dose: 650 mg Fentanyl Citrate (Fentanyl Citrate Pf 100 Mcg/2 Ml Vial) 50 mcg IV Q15M PRN PRN Reason: Pain Stop: 10/10/22 10:12 Last Admin: 09/26/22 10:45 Dose: 50 mcg Heparin Sodium/Dextrose (Heparin Sodium/Dextrose) 25,000 units in 500 mls @ 0 mls/hr IV .Q0M KEITH; Protocol Stop: 10/26/22 15:14 Last Titration: 09/27/22 07:18 Dose: 0 units/hr, 0 mls/hr Lidocaine (Lidocaine 5% 1 Patch) 1 patch TD QAM [facility] Stop: 10/26/22 16:19 Last Admin: 09/27/22 08:41 Dose: 1 patch Metoprolol Succinate (Metoprolol Succ 25mg Ext Rel Tab) 37.5 mg PO BID [facility] Stop: 10/27/22 08:59 Last Admin: 09/27/22 08:41 Dose: 37.5 mg Miscellaneous (Remove Lidoderm Patch) 1 each N/A DAILY@2100 [facility] Stop: 10/26/22 20:59 Last Admin: 09/26/22 20:24 Dose: 1 each Morphine Sulfate (Morphine Sulfate 2 Mg/Ml Carp) 1 mg IV Q8H PRN PRN Reason: Severe Pain (Scale 7, 8, 9,10) Stop: 10/10/22 16:19 Multivitamins/Minerals (Cerovite Adv Formula Tab) 1 tab PO DAILY [facility] Stop: 10/27/22 08:59 Last Admin: 09/27/22 08:42 Dose: 1 tab Nortriptyline HCl (Nortriptyline Hcl 10 Mg Cap) 20 mg PO HS [facility] Stop: 10/26/22 20:59 Last Admin: 09/26/22 20:23 Dose: 20 mg Polyethylene Glycol (Polyethylene (Miralax) 17 Gm Pack) 17 gm PO DAILY PRN PRN Reason: constipation Stop: 10/26/22 16:19 Primidone (Primidone 50 Mg Tab) 150 mg PO TID KEITH Stop: 10/26/22 16:19 Last Admin: 09/27/22 08:41 Dose: 150 mg Topiramate (Topiramate 25 Mg Tab) 25 mg PO BID [facility] Stop: 10/26/22 20:59 Last Admin: 09/27/22 08:41 Dose: 25 mg (4) Closed rib fracture Encounter type: initial encounter Laterality: left Rib fracture type: multi ple ribs Qualified Code(s): S22.42XA - Multiple fractures of ribs, left side, initial encounter for closed fracture
[2022-09-27] MEDS: ACETAMINOPHEN 325 MG TAB PO PRN (08:46)
--- NOTE | 2022-09-27 08:52 | Cardiology Progress Note ---
Date of Service September 27, 2022 Assessment & Plan (1) New onset a-fib: (2) Ambulatory dysfunction: (3) Frequent falls: (4) Pleural effusion: (5) HFrEF (heart failure with reduced ejection fraction): Plan IMPRESSION: Frail 77 year old female with history of severe essential tremor noting frequent falls and BROWNLEE. Recent rib fractures and chest contusion Found to be in new onset AFIB with RVR, HR in the 120-140s, asymptomatic. Echocardiogram demonstrated moderate diffuse LV dysfunction (30-35%) with biatrial enlargement. [id number] score of 3 (age 3, female)- stroke risk of about 3.2% per year with AFIB PLAN: 1. Increase metoprolol succinate to 50 mg twice daily 2. Discussed risk vs benefit of anticoagulation at length- there is significant concerned regarding her mobility and with her frequent falls she is a high bleeding risk. In the short term we will start IV heparin while in patient- will need to assess the need for fpc anticoagulation at discharge. Stop Aspirin- Most recent treatment guidelines suggest that the prophylactic benefit of aspirin is negligible. 3. Dyspneic with exertion and mild orthopnea- pleural effusion noted on chest CT. Dyspnea mildly improved with IV diuresis, denies orthopnea. Give an add ition 20 mg IV Lasix today. BMP tomorrow- Recommend maintaining a potassium goal of 4.0 and mag goal of 2.0. Strict I&O measurements with daily weights. 4. New onset HFrEF, possibly tachycardic related, ischemic cause has not been excluded. HS Troponin elevated, likely due to demand. Recommend titration of GDMT. Will increase metoprolol as stated above. Unable to add ACEi/ARB at this time due to borderline hyperkalemia. Will reassess pending clinic course. Case discussed with Dr. Oreilly- will follow. Admission and Anticipated Discharge Date Admission Date: September 26, 2022 Supervising Physician Co-Signing Physician Notes Patient was seen and examined, chart medications telemetry reviewed. Feels somewhat better and looks brighter today sitting out of bed in chair. No dizziness or lightheadedness. Blood pressure still remain elevated as does heart rate no respiratory distress or pain has responded to diuresis Plan: As above, continue to titrate beta-shaista higher continue IV anticoagulation with heparin Subjective Frail 77-year-old female with new onset atrial fibrillation/flutter with RVR . History notable for severe essential tremor noting frequent falls and BROWNLEE with recent rib fractures. Patient was unaware of tachyarrhythmia. Echocardiogram demonstrated moderate diffuse LV dysfunction (30-35%) with biatrial enlargement. CT of the chest with pleural effusions and congestion. 09/26: Metoprolol succinate increased to 25 mg twice daily for rate control. IV heparin started for stroke prevention. Aspirin discontinued. 20 mg of IV Lasix given due to pleural effusions on chest CT. 09/27: Telemetry: AFIB 130s, 150-160s with activity I&O: +1.5 L Weight: 53.6 kg >> 55.6 kg Upon entrance into the room patient resting in bed. Notes an improvement in her breathing since receiving the IV Lasix yesterday. No chest pain or tachy palpitations. No lightheadedness. No orthopnea or PND. No lower extremity edema. PT at bedside. Review of Systems Review of Systems: All systems reviewed & are unremarkable except as noted in HPI & below Physical Exam Constitutional: + thin and + frail appearing; no acute distress Neck: normal visual inspection and trachea midline Respiratory: normal respiratory effort; no cough Auscultation: + diminished lung sounds and + rales (R>L ) Cardiovascular: Rate/Rhythm: + tachycardic and + irregularly irregular Heart Sounds: normal S1 and normal S2; no murmur Vessels: no JVD Extremities: no edema Gastrointestinal (Abdomen): normal bowel sounds, soft, nontender, no hepatosplenomegaly Skin: no rashes, warm and dry Neurologic: Motor/Sensory: + tremor (severe) Psychiatric: A+Ox3, euthymic affect (at times forgetful) Motor Behavior: + tremor Results & Data Vital Signs (Past 12 Hours) Vital Signs Temp Pulse Pulse Resp BP Pulse Ox O2 Del Method 09/27/22 08:29 36.5 C 108 H 18 141/66 H 97 Room Air 09/27/22 02:49 36.4 C L 119 H 19 137/87 93 Room Air 09/26/22 23:33 132 H 09/26/22 22:51 36.7 C 115 H 22 129/81 92 Room Air Laboratory Results Cardiac Enzymes 09/26/22 09/26/22 09/26/22 Range/Units 10:26 14:16 16:42 AST 40 H (13-39) U/L Troponin I High Sens 32.1 H 40.0 H 51.9 H* D (0-14) pg/ml 09/26/22 09/27/22 Range/Units 22:39 05:48 AST 31 (13-39) U/L Troponin I High Sens 60.4 H* (0-14) pg/ml Coagulation 09/26/22 09/26/22 09/27/22 Range/Units 10:26 22:39 05:48 PT 12.3 H (9.0-12.0) Seconds APTT 27.1 55.8 H* 96.1 H* (21.0-31.0) Seconds Lipids 09/27/22 Range/Units 05:48 Triglycerides 51 (0-150) mg/dl Cholesterol 129 (0-200) mg/dl HDL Cholesterol 67 mg/dl Cholesterol/HDL Ratio 1.9 (0-5) CBC 09/26/22 09/27/22 Range/Units 10:26 05:48 WBC 4.02 L 3.15 L (4.8-10.8) K/ul RBC 4.69 4.13 L (4.20-5.40) M/uL Hgb 15.9 14.2 (12.0-16.0) g/dl Hct 47.3 H 41.2 (37.0-47.0) % Plt Count 123 L 100 L (130-400) K/uL Neut # (Auto) 2.99 1.33 L (1.40-6.50) K/uL Lymph # (Auto) 0.65 L 1.33 (1.2-3.4) K/uL [place] # (Auto) 0.30 0.36 (0.11-0.59) K/uL Eos # (Auto) 0.04 0.10 (0-0.50) K/uL Baso # (Auto) 0.02 0.02 (0-0.2) K/uL Comprehensive Metabolic Panel 09/26/22 09/26/22 09/27/22 Range/Units 10:26 14:16 05:48 Sodium 142 141 (136-145) mmol/L Potassium 3.9 4.1 5.0 D (3.5-5.1) mmol/L Chloride 106 109 H (98-107) mmol/L Carbon Dioxide 25 27 (21-32) mmol/L BUN 16 15 (6-23) mg/dl Creatinine 1.00 0.99 (0.6-1.2) mg/dl Glucose 112 H 99 (70-99(Fasting)) mg/dl Calcium 9.7 8.9 (8.6-10.3) mg/dl AST 40 H 31 (13-39) U/L ALT 39 30 (7-52) U/L Alkaline Phosphatase 107 H 85 (34-104) U/L Total Protein 6.9 5.6 L (6.0-8.3) gm/dl Albumin 4.0 3.3 L (3.4-5.0) gm/dl Intake and Output 09/26/22 09/27/22 09/27/22 22:59 06:59 14:59 Intake Total 184.2 / 1487.1 202.9 / 1487.1 118.185 / 118.185 Output Total 100 / 100 Balance 84.2 / 1387.1 202.9 / 1387.1 118.185 / 118.185 Intake: IV 34.2 / 1237.1 102.9 / 1237.1 118.185 / 118.185 Heparin Sodium/Dextrose 25,000 34.2 / 137.1 102.9 / 137.1 118.185 / 118.185 units In 500 ml @ 900 UNITS/HR 18 mls/hr IV .Q24H [facility] Rx#: [id number] Oral 150 / 250 100 / 250 Output: Urine 100 / 100 Other: Weight 55.6 kg Weight Measurement Method Built in [facility]
[2022-09-27] MEDS ORDERED: METOPROLOL SUCC 25MG EXT REL TAB PO SCH (09:00)
[2022-09-27] MEDS ORDERED: ASPIRIN 81 MG ECTAB PO SCH (09:00)
[2022-09-27] MEDS ORDERED: METOPROLOL SUCC 25MG EXT REL TAB PO STA (09:39)
[2022-09-27] MEDS ORDERED: FUROSEMIDE INJ 20 MG/2 ML VIAL IV ONE (09:41)
--- NOTE | 2022-09-27 10:22 | Electrocardiogram Report ---
Test Reason : Blood Pressure : / mmHG Vent. Rate : 122 BPM Atrial Rate : 117 BPM P-R Int : 000 ms QRS Dur : 082 ms QT Int : 308 ms P-R-T Axes : 000 118 117 degrees QTc Int : 438 ms Atrial fibrillation with rapid ventricular response Right axis deviation T wave abnormality, consider anterolateral ischemia Abnormal ECG When compared with ECG of 26-SEP-2022 10:42, Inverted T waves have replaced nonspecific T wave abnormality in Anterior leads Confirmed by Mario Sol ([id number]) on 09/27/2022 10:21:53 AM Referred By: REFERRED SELF Confirmed By:Torrey Sol
[2022-09-27] MEDS ORDERED: METOPROLOL TARTRATE 1 MG/ML VIAL IV STA (13:32)
[2022-09-27] MEDS ORDERED: BUTALBITAL/ACETAMIN/CAFFEINE TAB PO STA (13:39)
[2022-09-27] MEDS ORDERED: METOPROLOL SUCC 50MG EXT REL TAB PO STA (14:49)
[2022-09-27 15:36] LABS: Partial Thromboplastin Ratio 2.8
[2022-09-27] MEDS: PANTOprazole 40 MG TAB PO SCH (15:38)
[2022-09-27 16:49] LABS: Partial Thromboplastin Time 79.1 Seconds (21.0-31.0)
[2022-09-27] MEDS: HEPARIN SODIUM/DEXTROSE 25,000 UNITS/500 ML BAG IV SCH (16:51)
[2022-09-27] MEDS: METOPROLOL SUCC 50MG EXT REL TAB PO SCH (20:02)
[2022-09-27] MEDS: NORTRIPTYLINE HCL 10 MG CAP PO SCH (20:02)
[2022-09-28 00:30] LABS: Partial Thromboplastin Ratio 2.8
[2022-09-28 00:37] LABS: Partial Thromboplastin Time 78.9 Seconds (21.0-31.0)
[2022-09-28 07:39] LABS: BUN Creatinine Ratio 19.3 (10-20); Calcium 8.9 mg/dl (8.6-10.3); Est GFR (Non-African American) 63.8 ml/min; Potassium 3.7 mmol/L (3.5-5.1)
[2022-09-28 08:14] LABS: Partial Thromboplastin Ratio 2.4
[2022-09-28] MEDS ORDERED: METOPROLOL TARTRATE 1 MG/ML VIAL IV STA (08:37)
--- NOTE | 2022-09-28 08:42 | Cardiology Progress Note ---
Date of Service September 28, 2022 Assessment & Plan (1) New onset a-fib: (2) Ambulatory dysfunction: (3) Frequent falls: (4) Pleural effusion: (5) HFrEF (heart failure with reduced ejection fraction): Plan IMPRESSION: Frail 77 year old female with history of severe essential tremor noting frequent falls and BROWNLEE. Recent rib fractures and chest contusion Found to be in new onset AFIB with RVR, HR in the 120-140s, asymptomatic. Echocardiogram demonstrated moderate diffuse LV dysfunction (30-35%) with biatrial enlargement. [id number] score of 3 (age 3, female)- stroke risk of about 3.2% per year with AFIB PLAN: 1. Heart rates remain elevated. Increase metoprolol succinate to 100 mg twice daily. Add 0.25 mg of Digoxin this evening at 1600. Pain an anxiety seem to also be a driving factor for the elevated heart rates. Recommend good pain control- will defer to primary team regarding treatment of anxiety. 2. Discussed risk vs benefit of anticoagulation at length- there is significant concerned regarding her mobility and with her frequent falls she is a high bleeding risk. 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 Stop Aspirin- Most recent treatment guidelines suggest that the prophylactic benefit of aspirin is negligible. 3. Previously noting dyspnea and orthopnea- pleural effusion noted on prior chest CT. Symptoms now resolved. Lung are diminished- encourage deep breathing and coughing. Will hold Lasix today. BMP tomorrow- Recommend maintaining a potassium goal of 4.0 and mag goal of 2.0. Strict I&O measurements with daily weights. 4. New onset HFrEF, possibly tachycardic related, ischemic cause has not been excluded. HS Troponin elevated, likely due to demand. Recommend titration of GDMT. Will increase metoprolol as stated above. Unable to add ACEi/ARB at this time due to borderline hyperkalemia. Will reassess pending clinic course. Case discussed with Dr. Oreilly- will follow. Admission and Anticipated Discharge Date Admission Date: September 26, 2022 Supervising Physician Co-Signing Physician Notes Patient was seen and examined, chart, medications, telemetry reviewed. Assessment and plan as well outlined above. Still remains tachycardic moderately breathless pleuritic pain and discomfort at left chest on deep inspiration with diminished breath sounds on auscultation Heart rates being driven by underlying pain and issues but we will upward titrate metoprolol as above, add digoxin Chest x-ray today assess size of pleural effusions Physical examination not significantly consistent with volume overload Subjective Frail 77-year-old female with new onset atrial fibrillation/flutter with RVR . History notable for severe essential tremor noting frequent falls and BROWNLEE with recent rib fractures. Patient was unaware of tachyarrhythmia. Echocardiogram demonstrated moderate diffuse LV dysfunction (30-35%) with biatrial enlargement. CT of the chest with pleural effusions and congestion. 09/26: Metoprolol succinate increased to 25 mg twice daily for rate control. IV heparin started for stroke prevention. Aspirin discontinued. 20 mg of IV Lasix given due to pleural effusions on chest CT. 09/27: Telemetry: AFIB 130s, 150-160s with activity Patient received a total of 75 mg twice daily of metoprolol succinate in addition to x1 dose of 5 mg of Lopressor. 20 mg of IV Lasix given 09/28: Telemetry: AFIB 110-120s at rest, 160s with activity Blood pressures improving. I&O: +1.4L Weight: 53.6 >> 55.8 kg Upon entrance into the room patient resting comfortably in bed sleeping- woke easily. Telemetry currently 110-120s. Denies cardiac chest pain- but does have ongoing left rib discomfort. Mentioned improvement in breathing. No palpitations. No lower extremity edema. Per nursing- patient having a fair deal of pain, heart rates seem to increase substantially when this occurs during any type of activity. Also noting significant anxiety from the patient. Patient was given Oxy this morning plus 5 mg IV Lopressor as well as her 50 mg metoprolol succinate. Review of Systems Review of Systems: All systems reviewed & are unremarkable except as noted in HPI & below Physical Exam Constitutional: + thin and + frail appearing; no acute distress Neck: normal visual inspection and trachea midline Respiratory: normal respiratory effort; no cough Auscultation: + diminished lung sounds; no rales Cardiovascular: Rate/Rhythm: + tachycardic and + irregularly irregular Heart Sounds: normal S1 and normal S2; no murmur Vessels: no JVD Extremities: no edema Gastrointestinal (Abdomen): normal bowel sounds, soft, nontender, no hepatosplenomegaly Skin: no rashes, warm and dry Neurologic: Motor/Sensory: + tremor (severe) Psychiatric: A+Ox3, euthymic affect (at times forgetful) Motor Behavior: + tremor Results & Data Vital Signs (Past 12 Hours) Vital Signs Temp Pulse Pulse Resp BP Pulse Ox O2 Del Method 09/28/22 08:25 142 H 24 95 Room Air 09/28/22 02:25 36.4 C L 122 H 22 127/92 94 Room Air 09/28/22 00:12 112 H 09/27/22 22:50 36.9 C 109 H 19 118/76 94 Room Air Laboratory Results Coagulation 09/27/22 09/27/22 09/28/22 Range/Units 14:47 23:13 06:41 APTT 79.1 H* 78.9 H* 68.9 H* (21.0-31.0) Seconds Comprehensive Metabolic Panel 09/28/22 Range/Units 06:41 Sodium 139 (136-145) mmol/L Potassium 3.7 D (3.5-5.1) mmol/L Chloride 107 (98-107) mmol/L Carbon Dioxide 24 (21-32) mmol/L BUN 17 (6-23) mg/dl Creatinine 0.88 (0.6-1.2) mg/dl Glucose 112 H (70-99(Fasting)) mg/dl Calcium 8.9 (8.6-10.3) mg/dl Intake and Output 09/27/22 09/28/22 09/28/22 22:59 06:59 14:59 Intake Total 171.067 / 856.502 117.25 / 856.502 117.600 / 117.600 Output Total 250 / 852 175 / 852 Balance -78.933 / 4.502 -57.75 / 4.502 117.600 / 117.600 Intake: IV 121.067 / 356.502 117.25 / 356.502 117.600 / 117.600 Heparin Sodium/Dextrose 25,000 121.067 / 356.502 117.25 / 356.502 117.600 / 117.600 units In 500 ml @ 700 UNITS/HR 14 mls/hr IV .Q24H [facility] Rx#: [id number] Oral 50 / 500 Output: Urine 250 / 852 175 / 852 Other: Weight 55.8 kg Weight Measurement Method Built in [facility]
[2022-09-28] MEDS: PANTOprazole 40 MG TAB PO SCH (08:44)
[2022-09-28] MEDS: LIDOCAINE 5% 1 PATCH TD SCH (08:44)
[2022-09-28] MEDS: CEROVITE ADV FORMULA TAB PO SCH (08:45)
[2022-09-28] MEDS: METOPROLOL SUCC 50MG EXT REL TAB PO SCH ×2 (08:45→20:28)
[2022-09-28] MEDS: TOPIRAMATE 25 MG TAB PO SCH ×2 (08:45→20:29)
[2022-09-28] MEDS: PRIMIDONE 50 MG TAB PO SCH ×3 (08:45→20:28)
[2022-09-28] MEDS ORDERED: oxyCODONE HCL IR 5 MG TAB (IMMEDIATE RELEASE) PO STA (08:50)
[2022-09-28 09:03] LABS: Partial Thromboplastin Time 68.9 Seconds (21.0-31.0)
[2022-09-28] MEDS ORDERED: METOPROLOL SUCC 50MG EXT REL TAB PO STA (11:19)
--- NOTE | 2022-09-28 12:52 | XRay Report ---
XR chest 1V portable HISTORY: 77 years-old Female Dyspnea, rib fractures, do upright acute shortness of breath in a patie nt with reported subacute left-sided rib fractures. COMPARISON: CTA chest 09/26/2022 TECHNIQUE: AP view of the chest FINDINGS: Subacute nondisplaced left-sided rib fractures are better seen on the comparison CT. Cardiomegaly wit h pulmonary vascular congestion, layering pleural effusions with bibasilar consolidation again noted in addition to calcified bilateral pleural plaques. No pneumothorax identified. Degenerative changes of the shoulders and spine. Cholecystectomy. IMPRESSION: 1. Subacute nondisplaced left-sided rib fractures are better seen on the comparison chest CT. No pneu mothorax. 2. Cardiomegaly with pulmonary vascular congestion. 3. Layering pleural effusions with bibasilar consolidation again noted. 4. 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 ACT 112: Negative or not required by law. The above report was generated using voice recognition software. It may contain grammatical, syntax o r spelling errors. Electronically signed by: Albert Vang M.D. 09/28/2022 12:50 PM
--- NOTE | 2022-09-28 15:39 | Hospitalist Progress Note ---
Date of Service September 28, 2022 Assessment & Plan (1) New onset a-fib: Plan: Metoprolol which is being titrated. This morning she required IV Loporessor. Cardiology increased BB and added digoxin. She is anticoagulated on heparin. (2) Fall: Plan: Multiple recent falls. Likely multiple factors contributing. PT/OT (3) Ambulatory dysfunction: Plan: PT/OT as above (4) HFrEF (heart failure with reduced ejection fraction): Plan: compensated, cont current medical therapy. (5) Closed rib fracture: Plan: 2/2 recent fall. Cont supportive care with lidocaine patch. Tylenol or other pain meds as needed. (6) Anxiety: Plan: appears uncontrolled, cont to redirect and get HR and pain under better control (7) Essential tremor: Plan: chronic, stable. May be contributing to falls. Continues on primidone per home regimen. (8) Migraine: Plan: chronic, stable. No migraine at this time. Cont topamax and nortriptyline per home regimen. DVT proph: heparin drip Full Code Dispo-pending PT/OT recommendations Gardenia Cheng DO [facility] Hospitalist Admission and Anticipated Discharge Date Admission Date: September 26, 2022 Subjective 77 yo F with essential tremor presents to the ER with worsening SOB. today she is more winded and tachycardic she is anxious about seeing a woman in distress overnight in the hallway she is having pain froom her rib fractures Review of Systems Review of Systems: All systems were reviewed and negative except as indicated on subjective above. Physical Exam Physical Exam: CONSTITUTIONAL: WNWD, vitals as above, generally well-appearing, appears anxious EYES: normal conjunctivae, no scleral icterus ENT: external ear and nose normal, oropharynx clear, MMM NECK: trachea midline RESPIRATORY: clear to auscultation bilaterally, no crackles, rales or wheezes, normal respiratory effort CARDIOVASCULAR: irregular tachy rate and irregular rhythm, S1 and 2 heard without murmurs, gallops or rubs, no JVD, no peripheral edema CHEST: inspection of chest was normal GASTROINTESTINAL: soft, nontender, ND, no guarding MUSCULOSKELETAL: strength 5/5 throughout, head is normocephalic and atraumatic SKIN: warm and dry NEUROLOGIC: general tremulousness, voice is shaky, CN 2-12 grossly intact, no sensory deficit, normal cognition, normal speech PSYCHIATRIC: alert cooperative and oriented to person, place and time. Euthymic mood, makes good eye contact, language grossly intact, recent and remote memory grossly intact. Results & Data Results & Data Vital Signs (Past 12 Hours) Vital Signs Temp Pulse Pulse Resp BP Pulse Ox O2 Del Method 09/28/22 12:03 36.8 C 68 105/68 97 Room Air 09/28/22 08:00 123 H 09/28/22 08:52 36.6 C 144 H 22 135/88 96 Room Air 09/28/22 08:44 144 H 09/28/22 08:25 142 H 24 95 Room Air Laboratory Results BMP 09/28/22 06:41 Sodium 139 Potassium 3.7 D Chloride 107 Carbon Dioxide 24 BUN 17 Creatinine 0.88 Glucose 112 H Calcium 8.9 Diagnostic Findings Chest X-Ray 09/28/22 12:27 XR chest 1V portable HISTORY: 77 years-old Female Dyspnea, rib fractures, do upright acute shortness of breath in a patient with reported subacute left-sided rib fractures. COMPARISON: CTA chest 09/26/2022 TECHNIQUE: AP view of the chest FINDINGS: Subacute nondisplaced left-sided rib fractures are better seen on the comparison CT. Cardiomegaly with pulmonary vascular congestion, layering pleural effusions with bibasilar consolidation again noted in addition to calcified bilateral pleural plaques. No pneumothorax identified. Degenerative changes of the shoulde rs and spine. Cholecystectomy. IMPRESSION: 1. Subacute nondisplaced left-sided rib fractures are better seen on the comparison chest CT. No pneumothorax. 2. Cardiomegaly with pulmonary vascular congestion. 3. Layering pleural effusions with bibasilar consolidation again noted. 4. 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 ACT 112: Negative or not required by law. The above report was generated using voice recognition software. It may contain grammatical, syntax or spelling errors. Electronically signed by: Albert Vang M.D. 09/28/2022 12:50 PM Medications Administered Current Inpatient Medications Acetaminophen (Acetaminophen 325 Mg Tab) 650 mg PO Q4H PRN PRN Reason: pain/fever Stop: 10/26/22 16:19 Last Admin: 09/27/22 08:46 Dose: 650 mg Digoxin (Digoxin 0.25 Mg Tab) 0.25 mg PO ONCE ONE Stop: 09/28/22 16:01 Fentanyl Citrate (Fentanyl Citrate Pf 100 Mcg/2 Ml Vial) 50 mcg IV Q15M PRN PRN Reason: Pain Stop: 10/10/22 10:12 Last Admin: 09/26/22 10:45 Dose: 50 mcg Heparin Sodium/Dextrose (Heparin Sodium/Dextrose) 25,000 units in 500 mls @ 13 mls/hr IV .Q24H [facility]; Protocol Stop: 10/26/22 15:14 Last Titration: 09/28/22 09:04 Dose: 650 units/hr, 13 mls/hr Lidocaine (Lidocaine 5% 1 Patch) 1 patch TD QAM [facility] Stop: 10/26/22 16:19 Last Admin: 09/28/22 08:44 Dose: 1 patch Metoprolol Succinate (Metoprolol Succ 50mg Ext Rel Tab) 100 mg PO BID [facility] Stop: 10/28/22 20:59 Miscellaneous (Remove Lidoderm Patch) 1 each N/A DAILY@2100 [facility] Stop: 10/26/22 20:59 Last Admin: 09/27/22 20:02 Dose: 1 each Multivitamins/Minerals (Cerovite Adv Formula Tab) 1 tab PO DAILY [facility] Stop: 10/27/22 08:59 Last Admin: 09/28/22 08:45 Dose: 1 tab Nortriptyline HCl (Nortriptyline Hcl 10 Mg Cap) 20 mg PO HS [facility] Stop: 10/26/22 20:59 Last Admin: 09/27/22 20:02 Dose: 20 mg Oxycodone HCl (Oxycodone Hcl Ir 5 Mg Tab (Immediate Release)) 5 mg PO Q6H PRN PRN Reason: Severe Pain (Scale 7, 8, 9,10) Stop: 10/12/22 08:49 Pantoprazole Sodium (Pantoprazole 40 Mg Tab) 40 mg PO QAM [facility] Stop: 10/27/22 13:59 Last Admin: 09/28/22 08:44 Dose: 40 mg Polyethylene Glycol (Polyethylene (Miralax) 17 Gm Pack) 17 gm PO DAILY PRN PRN Reason: constipation Stop: 10/26/22 16:19 Primidone (Primidone 50 Mg Tab) 150 mg PO TID [facility] Stop: 10/26/22 16:19 Last Admin: 09/28/22 08:45 Dose: 150 mg Topiramate (Topiramate 25 Mg Tab) 25 mg PO BID [facility] Stop: 10/26/22 20:59 Last Admin: 09/28/22 08:45 Dose: 25 mg (5) Closed rib fracture Encounter type: initial encounter Laterality: left Rib fracture type: multiple ribs Qualified Code(s): S22.42XA - Multiple fractures of ribs, left side, initial encounter for closed fracture
[2022-09-28] MEDS ORDERED: DIGOXIN 0.25 MG TAB PO ONE (16:00)
[2022-09-28 16:25] LABS: Partial Thromboplastin Time 56.8 Seconds (21.0-31.0)
[2022-09-28] MEDS: NORTRIPTYLINE HCL 10 MG CAP PO SCH (20:28)
[2022-09-28] MEDS ORDERED: METOPROLOL SUCC 25MG EXT REL TAB PO SCH (21:00)
[2022-09-29 06:32] LABS: Hemoglobin 14.5 g/dl (12.0-16.0); Mean Corpuscular Hemoglobin 33.6 pg (25.0-34.0); Mean Corpuscular Hgb Conc 34.5 g/dL (32.0-36.0); Mean Corpuscular Volume 97.4 fL (80.0-100.0); RDW Coefficient of Variation 13.1 % (11.5-14.5); RDW Standard Deviation 47.1 fL (36.4-46.3); Red Blood Count 4.31 M/uL (4.20-5.40); White Blood Count 4.15 K/ul (4.8-10.8)
[2022-09-29 06:49] LABS: BUN Creatinine Ratio 23.5 (10-20); Calcium 8.7 mg/dl (8.6-10.3); Creatinine Clr Calc Pharmacy 46.7 ml/min; Est GFR (African American) 81.8 ml/min; Est GFR (Non-African American) 70.5 ml/min; Magnesium 1.8 mg/dl (1.7-2.4); Potassium 3.6 mmol/L (3.5-5.1)
[2022-09-29 07:10] LABS: Partial Thromboplastin Time 56.9 Seconds (21.0-31.0)
[2022-09-29 07:11] LABS: Basophils # (auto) 0.02 K/uL (0-0.2); Basophils % (auto) 0.5 %; Echinocytes 1+; Eosinophils # (auto) 0.03 K/uL (0-0.50); Eosinophils % (auto) 0.7 %; Immature Granulocytes # (auto) 0.01 K/uL (0.01-0.20); Immature Granulocytes % (auto) 0.2 %; Lymphocytes # (auto) 0.96 K/uL (1.2-3.4); Lymphocytes % (auto) 23.1 %; Mean Platelet Volume 12.7 fL (9.4-12.4); Monocytes # (auto) 0.39 K/uL (0.11-0.59); Monocytes % (auto) 9.4 %; Neutrophils # (auto) 2.74 K/uL (1.40-6.50); Neutrophils % (auto) 66.1 %; Platelet Count 93 K/uL (130-400)
[2022-09-29] MEDS: HEPARIN SODIUM/DEXTROSE 25,000 UNITS/500 ML BAG IV SCH (07:20)
--- NOTE | 2022-09-29 08:02 | Cardiology Progress Note ---
Date of Service September 29, 2022 Assessment & Plan (1) New onset a-fib: (2) Ambulatory dysfunction: (3) Frequent falls: (4) Pleural effusion: (5) HFrEF (heart failure with reduced ejection fraction): Plan IMPRESSION: Frail 77 year old female with history of severe essential tremor noting frequent falls and BROWNLEE. Recent rib fractures and chest contusion Found to be in new onset AFIB with RVR, HR in the 120-140s, asymptomatic. Echocardiogram demonstrated moderate diffuse LV dysfunction (30-35%) with biatrial enlargement. [id number] score of 3 (age 3, female)- stroke risk of about 3.2% per year with AFIB PLAN: 1. Heart rates remain elevated, but slowly trending downward. Continue metoprolol succinate to 100 mg twice daily. Will give an additional 0.25 mg of Digoxin this am and reduce to 0.125 mg this evening at 1600. Pain and anxiety seem to also be a driving factor for the elevated heart rates. Recommend good pain control- will defer to primary team regarding treatment of anxiety. 2. Discussed risk vs benefit of anticoagulation at length- there is significant concerned regarding her mobility and with her frequent falls she is a high bleeding risk. In the short term we will start IV heparin while in patient- will need to assess the need for drawer in anticoagulation at discharge. Stop Aspirin- Most recent treatment guidelines suggest that the prophylactic benefit of aspirin is negligible. 3. Previously noting dyspnea and orthopnea- pleural effusion noted on prior chest CT, appears unchanged on yesterday's CXR. Symptoms now resolved. Lung are diminished- encourage deep breathing and coughing- incentive spirometry recommended. Hold Lasix. Recommend maintaining a potassium goal of 4.0 and mag goal of 2.0- 40 meq of KCL this am. Strict I&O measurements with daily weights. 4. New onset HFrEF, possibly tachycardic related, ischemic cause has not been excluded. HS Troponin elevated, likely due to demand. Recommend titration of GDMT. Continue metoprolol as stated above, add low dose lisinopril 2.5 mg daily. Case discussed with Dr. Oreilly- will follow. Admission and Anticipated Discharge Date Admission Date: September 26, 2022 Supervising Physician Co-Signing Physician Notes Patient was seen and examined, chart and medications reviewed. Still intermittently dyspneic with elevated heart rate but trending towards better control. We will continue current dosing of metoprolol succinate with additional digoxin. No bradycardia arrhythmias observed No significant effusions on chest x-ray that warrant thoracentesis and exam not reflective of volume overload currently Plan as above Would recommend changing IV heparin to Eliquis. Risks and benefits discussed in detail with patient especially in light of multiple falls. Both and patient wished to proceed with full anticoagulation. Subjective Frail 77-year-old female with new onset atrial fibrillation/flutter with RVR, asymptomatic. History notable for severe essential tremor noting frequent falls and BROWNLEE with recent rib fractures. Echocardiogram demonstrated moderate diffuse LV dysfunction (30-35%) with biatrial enlargement. CT of the chest ans CXR with pleural effusions and congestion. 09/26: Metoprolol succinate increased to 25 mg twice daily for rate control. IV heparin started for stroke prevention. Aspirin discontinued. 20 mg of IV Lasix given due to pleural effusions on chest CT. 09/27: Telemetry: AFIB 130s, 150-160s with activity Patient received a total of 75 mg twice daily of metoprolol succinate in addition to x1 dose of 5 mg of Lopressor. 20 mg of IV Lasix given 09/28: Telemetry: AFIB 110-120s at rest, 160s with activity Metoprolol increased to 100 mg twice daily Digoxin 0.25 mg started IV heparin for stroke prevention Lasix held due to patient clinically examining euvolemic Chest x-ray: Pulmonary vascular congestion with layering pleural effusions and bibasilar consolidation 09/29: Telemetry: AFIB 90-120s Patient asleep in bed, woke easily- had a "bad night" couldn't sleep. Feeling fatigued this morning. Overall, notes improvement in her symptoms. No shortness of breath or exertional chest pain. Continues to have left sided rib discomfort. Review of Systems Review of Systems: All systems reviewed & are unremarkable except as noted in HPI & below Physical Exam Constitutional: + thin and + frail appearing; no acute distress Neck: normal visual inspection and trachea midline Respiratory: normal respiratory effort; no cough Auscultation: + diminished lung sounds; no rales Cardiovascular: Rate/Rhythm: + tachycardic and + irregularly irregular Heart Sounds: normal S1 and normal S2; no murmur Vessels: no JVD Extremities: no edema Gastrointestinal (Abdomen): normal bowel sounds, soft, nontender, no hepatosplenomegaly Skin: no rashes, warm and dry Neurologic: Motor/Sensory: + tremor (severe) Psychiatric: A+Ox3, euthymic affect (at times forgetful) Motor Behavior: + tremor Results & Data Vital Signs (Past 12 Hours) Vital Signs Temp Pulse Pulse Resp BP Pulse Ox O2 Del Method 09/29/22 02:39 36.3 C L 127 H 22 144/93 H 94 Room Air 09/28/22 23:56 129 H 09/28/22 23:02 36.7 C 120 H 24 119/82 96 Room Air Laboratory Results Coagulation 09/28/22 09/29/22 Range/Units 15:04 05: APTT 56.8 H* 56.9 H* (21.0-31.0) Seconds CBC 09/29/22 Range/Units 05:19 WBC 4.15 L (4.8-10.8) K/ul RBC 4.31 (4.20-5.40) M/uL Hgb 14.5 (12.0-16.0) g/dl Hct 42.0 (37.0-47.0) % Plt Count 93 L (130-400) K/uL Neut # (Auto) 2.74 (1.40-6.50) K/uL Lymph # (Auto) 0.96 L (1.2-3.4) K/uL [place] # (Auto) 0.39 (0.11-0.59) K/uL Eos # (Auto) 0.03 (0-0.50) K/uL Baso # (Auto) 0.02 (0-0.2) K/uL Comprehensive Metabolic Panel 09/29/22 Range/Units 05:19 Sodium 138 (136-145) mmol/L Potassium 3.6 (3.5-5.1) mmol/L Chloride 107 (98-107) mmol/L Carbon Dioxide 23 (21-32) mmol/L BUN 19 (6-23) mg/dl Creatinine 0.81 (0.6-1.2) mg/dl Glucose 110 H (70-99(Fasting)) mg/dl Calcium 8.7 (8.6-10.3) mg/dl Intake and Output 09/28/22 09/29/22 09/29/22 22:59 06:59 14:59 Intake Total 131.95 / 782.750 233.2 / 782.750 Output Total 150 / 851 400 / 851 Balance -18.05 / -68.250 -166.8 / -68.250 Intake: IV 131.95 / 382.750 133.2 / 382.750 Heparin Sodium/Dextrose 25,000 131.95 / 382.750 133.2 / 382.750 units In 500 ml @ 650 UNITS/HR 13 mls/hr IV .Q24H [facility] Rx#: [id number] Oral 100 / 400 Output: Urine 150 / 850 400 / 850 Other: Weight 56 kg Weight Measurement Method Built in [facility]
[2022-09-29] MEDS: PANTOprazole 40 MG TAB PO SCH (08:23)
[2022-09-29] MEDS: PRIMIDONE 50 MG TAB PO SCH ×3 (08:23→21:36)
[2022-09-29] MEDS: LIDOCAINE 5% 1 PATCH TD SCH (08:23)
[2022-09-29] MEDS: CEROVITE ADV FORMULA TAB PO SCH (08:23)
[2022-09-29] MEDS: TOPIRAMATE 25 MG TAB PO SCH ×2 (08:23→21:36)
[2022-09-29] MEDS: METOPROLOL SUCC 50MG EXT REL TAB PO SCH ×2 (08:23→21:35)
[2022-09-29] MEDS ORDERED: POTASSIUM CHLORIDE CRTAB 20 MEQ TABCR PO STA (09:21)
[2022-09-29] MEDS ORDERED: Nursing to Pharmacy Communication SCH (09:45)
[2022-09-29] MEDS ORDERED: POTASSIUM CHLORIDE 10 MEQ TABCR PO STA (09:50)
[2022-09-29] MEDS ORDERED: DIGOXIN 0.25 MG TAB PO ONE (10:45)
[2022-09-29] MEDS: lisinopril 2.5 MG TAB PO SCH (11:01)
[2022-09-29] MEDS: cefTRIAXone SODIUM 1,000 MG in DEXTROSE 5% AD-VAN 50 ML IV SCH (11:51)
--- NOTE | 2022-09-29 15:42 | Hospitalist Progress Note ---
Date of Service September 29, 2022 Assessment & Plan (1) Atrial fibrillation with rapid ventricular response: Plan: Heart rate is better controlled today. Cardiology adjusting her medications for rate control-currently on metoprolol, digoxin. Also on heparin drip for a nticoagulation Echocardiogram demonstrated moderate diffuse LV dysfunction (30-35%) with biatrial enlargement. [id number] score of 3 (age 3, female)- stroke risk of about 3.2% per year with AFIB (2) Fall: Plan: Multiple recent falls. Likely multiple factors contributing. PT/OT evaluation (3) Ambulatory dysfunction: Plan: PT/OT as above (4) HFrEF (heart failure with reduced ejection fraction): Plan: currently compensated- started on GDMT- gradual uptitration as tolerated. (5) Closed rib fracture: Plan: 2/2 recent fall. Cont supportive care with lidocaine patch. Tylenol or other pain meds as needed. (6) Essential tremor: Plan: chronic, stable. May be contributing to falls. Continues on primidone per home regimen. (7) Migraine: Plan: chronic, stable. No migraine at this time. Cont topamax and nortriptyline per home regimen. (8) UTI (urinary tract infection): Plan: Urine culture with Kluvyera-started on Rocephin D1/5 Plan DVT proph: heparin drip Full Code Dispo-pending PT/OT recommendations Updated at bedside Admission and Anticipated Discharge Date Admission Date: September 26, 2022 Subjective Patient was seen and examined at bedside in presence of . States she feels tired and weak and would like to get some sleep. States her oral intake was very poor prior to admission and is now gradually improving. She would like chocolate boost for additional nutrition. No fever, chills, chest pain, nausea or vomiting Review of Systems Review of Systems: All systems reviewed & are unremarkable except as noted in Subjective Physical Exam Physical Exam: General: Lying comfortably in bed, not in distress, on room air HEENT: EOMI, AMARJIT, MMM Chest: Fair breath sounds bilaterally CVS: Irregular rate and rhythm, normal heart sounds, no murmur Abdomen: Soft, non tender, not distended, normal bowel sounds Neuro: Awake, alert, oriented, conversing well, non focal Extremities: No cyanosis, clubbing or edema Results & Data Results & Data Vital Signs (Past 12 Hours) Vital Signs Temp Pulse Pulse Resp BP Pulse Ox O2 Del Method 09/29/22 15:25 36.6 C 65 18 125/84 94 Room Air 09/29/22 08:00 107 H 09/29/22 08:00 Room Air 09/29/22 11:08 36.4 C L 97 H 18 131/89 94 Room Air 09/29/22 11:01 103 H 09/29/22 08:00 36.8 C 85 16 125/84 93 Room Air Laboratory Results Short CBC 09/29/22 Range/Units 05:19 WBC 4.15 L (4.8-10.8) K/ul Hgb 14.5 (12.0-16.0) g/dl Hct 42.0 (37.0-47.0) % Plt Count 93 L (130-400) K/uL BMP 09/29/22 05:19 Sodium 138 Potassium 3.6 Chloride 107 Carbon Dioxide 23 BUN 19 Creatinine 0.81 Glucose 110 H Calcium 8.7 Medications Administered Current Inpatient Medications Acetaminophen (Acetaminophen 325 Mg Tab) 650 mg PO Q4H PRN PRN Reason: pain/fever Stop: 10/26/22 16:19 Last Admin: 09/27/22 08:46 Dose: 650 mg Digoxin (Digoxin 0.125 Mg Tab) 0.125 mg PO DAILY@1600 [facility] Stop: 10/29/22 15:59 Fentanyl Citrate (Fentanyl Citrate Pf 100 Mcg/2 Ml Vial) 50 mcg IV Q15M PRN PRN Reason: Pain Stop: 10/10/22 10:12 Last Admin: 09/26/22 10:45 Dose: 50 mcg Heparin Sodium/Dextrose (Heparin Sodium/Dextrose) 25,000 units in 500 mls @ 13 mls/hr IV .Q24H [facility]; Protocol Stop: 10/26/22 15:14 Last Admin: 09/29/22 07:20 Dose: 650 units/hr, 13 mls/hr Ceftriaxone Sodium 1,000 mg/ (Dextrose) 50 mls @ 100 mls/hr IV Q24H [facility]; Protocol Stop: 10/04/22 11:29 Last Infusion: 09/29/22 12:23 Dose: Infused Lidocaine (Lidocaine 5% 1 Patch) 1 patch TD QAM [facility] Stop: 10/26/22 16:19 Last Admin: 09/29/22 08:23 Dose: 1 patch Lisinopril (Lisinopril 2.5 Mg Tab) 2.5 mg PO QAM [facility] Stop: 10/29/22 10:44 Last Admin: 09/29/22 11:01 Dose: 2.5 mg Metoprolol Succinate (Metoprolol Succ 50mg Ext Rel Tab) 100 mg PO BID [facility] Stop: 10/28/22 20:59 Last Admin: 09/29/22 08:23 Dose: 100 mg Miscellaneous (Remove Lidoderm Patch) 1 each N/A DAILY@2100 [facility] Stop: 10/26/22 20:59 Last Admin: 09/28/22 20:30 Dose: Not Given Multivitamins/Minerals (Cerovite Adv Formula Tab) 1 tab PO DAILY [facility] Stop: 10/27/22 08:59 Last Admin: 09/29/22 08:23 Dose: 1 tab Nortriptyline HCl (Nortriptyline Hcl 10 Mg Cap) 20 mg PO HS [facility] Stop: 10/26/22 20:59 Last Admin: 09/28/22 20:28 Dose: 20 mg Oxycodone HCl (Oxycodone Hcl Ir 5 Mg Tab (Immediate Release)) 5 mg PO Q6H PRN PRN Reason: Severe Pain (Scale 7, 8, 9,10) Stop: 10/12/22 08:49 Pantoprazole Sodium (Pantoprazole 40 Mg Tab) 40 mg PO QAM [facility] Stop: 10/27/22 13:59 Last Admin: 09/29/22 08:23 Dose: 40 mg Polyethylene Glycol (Polyethylene (Miralax) 17 Gm Pack) 17 gm PO DAILY PRN PRN Reason: constipation Stop: 10/26/22 16:19 Primidone (Primidone 50 Mg Tab) 150 mg PO TID [facility] Stop: 10/26/22 16:19 Last Admin: 09/29/22 14:44 Dose: 150 mg Topiramate (Topiramate 25 Mg Tab) 25 mg PO BID [facility] Stop: 10/26/22 20:59 Last Admin: 09/29/22 08:23 Dose: 25 mg (5) Closed rib fracture Encounter type: initial encounter Laterality: left Rib fracture type: multiple ribs Qualified Code(s): S22.42XA - Multiple fractures of ribs, left side, initial encounter for closed fracture
[2022-09-29] MEDS ORDERED: DIGOXIN 0.25 MG TAB PO SCH (16:00)
[2022-09-29] MEDS ORDERED: BUTALBITAL/ACETAMIN/CAFFEINE TAB PO STA (16:16)
[2022-09-29] MEDS: CALCIUM CARBONATE 500 MG CHEWABLE TAB PO PRN (16:38)
[2022-09-29] MEDS: DIGOXIN 0.125 MG TAB PO SCH (17:43)
[2022-09-29] MEDS: NORTRIPTYLINE HCL 10 MG CAP PO SCH (21:35)
[2022-09-30] MEDS: ACETAMINOPHEN 325 MG TAB PO PRN (06:06)
[2022-09-30] MEDS: oxyCODONE HCL IR 5 MG TAB (IMMEDIATE RELEASE) PO PRN ×3 (06:07→17:52)
[2022-09-30 08:54] LABS: BUN Creatinine Ratio 30.1 (10-20); Calcium 8.5 mg/dl (8.6-10.3); Creatinine Clr Calc Pharmacy 51.9 ml/min; Est GFR (African American) 92.7 ml/min; Magnesium 1.9 mg/dl (1.7-2.4); Phosphorus 3.2 mg/dl (2.5-4.9); Potassium 3.6 mmol/L (3.5-5.1)
[2022-09-30 09:08] LABS: Partial Thromboplastin Ratio 1.8
[2022-09-30] MEDS: TOPIRAMATE 25 MG TAB PO SCH ×2 (09:52→21:03)
[2022-09-30] MEDS: METOPROLOL SUCC 50MG EXT REL TAB PO SCH ×2 (09:52→21:03)
[2022-09-30] MEDS: PRIMIDONE 50 MG TAB PO SCH ×3 (09:52→21:03)
[2022-09-30] MEDS: CEROVITE ADV FORMULA TAB PO SCH (09:53)
[2022-09-30] MEDS: lisinopril 2.5 MG TAB PO SCH (09:53)
[2022-09-30] MEDS: LIDOCAINE 5% 1 PATCH TD SCH (09:53)
[2022-09-30] MEDS: PANTOprazole 40 MG TAB PO SCH (09:53)
[2022-09-30] MEDS: CALCIUM CARBONATE 500 MG CHEWABLE TAB PO PRN (09:53)
[2022-09-30] MEDS: cefTRIAXone SODIUM 1,000 MG in DEXTROSE 5% AD-VAN 50 ML IV SCH (11:54)
--- NOTE | 2022-09-30 15:12 | Hospitalist Progress Note ---
Date of Service September 30, 2022 Assessment & Plan (1) Atrial fibrillation with rapid ventricular response: Plan: Heart rate is better controlled today. Cardiology adjusting her medications for rate control-currently on metoprolol, digoxin. Also on heparin drip for a nticoagulation. Per cardiology who discussed with family, they would like to proceed with full anticoagulation- and will start on eliquis. I spoke to pharmacist regarding the switch tonight. Echocardiogram demonstrated moderate diffuse LV dysfunction (30-35%) with biatrial enlargement. [id number] score of 3 (age 3, female)- stroke risk of about 3.2% per year with AFIB (2) Fall: Plan: Multiple recent falls. Likely multiple factors contributing. PT/OT evaluation (3) Ambulatory dysfunction: Plan: PT/OT as above (4) HFrEF (heart failure with reduced ejection fraction): Plan: currently compensated- started on GDMT- gradual uptitration as tolerated. (5) Closed rib fracture: Plan: 2/2 recent fall. Cont supportive care with lidocaine patch. Tylenol or other pain meds as needed. (6) Essential tremor: Plan: chronic, stable. May be contributing to falls. Continues on primidone per home regimen. (7) Migraine: Plan: chronic, stable. No migraine at this time. Cont topamax and nortriptyline per home regimen. (8) UTI (urinary tract infection): Plan: Urine culture with Kluvyera-started on Rocephin D2/5 Plan DVT proph: heparin drip -> Eliquis Full Code Dispo-anticipate discharge in 1 to 2 days. PT OT recommended home health PT at discharge Admission and Anticipated Discharge Date Admission Date: September 26, 2022 Subjective Patient was seen and examined at bedside. She is emotionally labile today, intermittently stuttering and crying during the encounter. States her granddaughter is coming to visit her today and she would not like her to see her in this condition in the hospital. Had intermittent rib pain but she did not want to schedule pain medicine, she would rather have pain medicine only as n eeded. No fever, chills, chest pain or shortness of breath, nausea or vomiting Review of Systems Review of Systems: All systems reviewed & are unremarkable except as noted in Subjective Physical Exam Physical Exam: General: Sitting comfortably in bed, not in distress, on room air HEENT: EOMI, AMARJIT, MMM Chest: Fair breath sounds bilaterally CVS: Irregular rate and rhythm, normal heart sounds, no murmur Abdomen: Soft, non tender, not distended, normal bowel sounds Neuro: Awake, alert, oriented, conversing well, non focal Extremities: No cyanosis, clubbing or edema Psych: Emotionally labile, intermittently stuttering and crying but cooperative Results & Data Results & Data Vital Signs (Past 12 Hours) Vital Signs Temp Pulse Pulse Resp BP Pulse Ox O2 Del Method 09/30/22 07:00 107 H 09/30/22 12:10 36.4 C L 85 18 110/75 90 Room Air 09/30/22 07:40 36.6 C 94 H 18 115/75 91 Room Air 09/30/22 03:47 37.0 C 90 18 108/83 91 Room Air Laboratory Results [facility] 09/30/22 07:33 Sodium 140 Potassium 3.6 Chloride 109 H Carbon Dioxide 25 BUN 22 Creatinine 0.73 Glucose 100 H Calcium 8.5 L Medications Administered Current Inpatient Medications Acetaminophen (Acetaminophen 325 Mg Tab) 650 mg PO Q4H PRN PRN Reason: pain/fever Stop: 10/26/22 16:19 Last Admin: 09/30/22 06:06 Dose: 650 mg Calcium Carbonate (Calcium Carbonate 500 Mg Chewable Tab) 1,500 mg PO BID PRN PRN Reason: Indigestion Stop: 10/29/22 16:18 Last Admin: 09/30/22 09:53 Dose: 1,500 mg Digoxin (Digoxin 0.125 Mg Tab) 0.125 mg PO DAILY@1600 [facility] Stop: 10/29/22 15:59 Last Admin: 09/29/22 17:43 Dose: 0.125 mg Fentanyl Citrate (Fentanyl Citrate Pf 100 Mcg/2 Ml Vial) 50 mcg IV Q15M PRN PRN Reason: Pain Stop: 10/10/22 10:12 Last Admin: 09/26/22 10:45 Dose: 50 mcg Heparin Sodium/Dextrose (Heparin Sodium/Dextrose) 25,000 units in 500 mls @ 13 mls/hr IV .Q24H [facility]; Protocol Stop: 10/26/22 15:14 Last Titration: 09/30/22 07:11 Dose: 650 units/hr, 13 mls/hr Ceftriaxone Sodium 1,000 mg/ (Dextrose) 50 mls @ 100 mls/hr IV Q24H [facility]; Protocol Stop: 10/04/22 11:29 Last Infusion: 09/30/22 14:50 Dose: Infused Lidocaine (Lidocaine 5% 1 Patch) 1 patch TD QAM [facility] Stop: 10/26/22 16:19 Last Admin: 09/30/22 09:53 Dose: 1 patch Lisinopril (Lisinopril 2.5 Mg Tab) 2.5 mg PO QAM [facility] Stop: 10/29/22 10:44 Last Admin: 09/30/22 09:53 Dose: 2.5 mg Metoprolol Succinate (Metoprolol Succ 50mg Ext Rel Tab) 100 mg PO BID [facility] Stop: 10/28/22 20:59 Last Admin: 09/30/22 09:52 Dose: 100 mg Miscellaneous (Remove Lidoderm Patch) 1 each N/A DAILY@2100 [facility] Stop: 10/26/22 20:59 Last Admin: 09/29/22 21:36 Dose: 1 each Multivitamins/Minerals (Cerovite Adv Formula Tab) 1 tab PO DAILY [facility] Stop: 10/27/22 08:59 Last Admin: 09/30/22 09:53 Dose: 1 tab Nortriptyline HCl (Nortriptyline Hcl 10 Mg Cap) 20 mg PO HS [facility] Stop: 10/26/22 20:59 Last Admin: 09/29/22 21:35 Dose: 20 mg Oxycodone HCl (Oxycodone Hcl Ir 5 Mg Tab (Immediate Release)) 5 mg PO Q6H PRN PRN Reason: Severe Pain (Scale 7, 8, 9,10) Stop: 10/12/22 08:49 Last Admin: 09/30/22 11:53 Dose: 5 mg Pantoprazole Sodium (Pantoprazole 40 Mg Tab) 40 mg PO QAM [facility] Stop: 10/27/22 13:59 Last Admin: 09/30/22 09:53 Dose: 40 mg Polyethylene Glycol (Polyethylene (Miralax) 17 Gm Pack) 17 gm PO DAILY PRN PRN Reason: constipation Stop: 10/26/22 16:19 Primidone (Primidone 50 Mg Tab) 150 mg PO TID [facility] Stop: 10/26/22 16:19 Last Admin: 09/30/22 14:53 Dose: 150 mg Topiramate (Topiramate 25 Mg Tab) 25 mg PO BID [facility] Stop: 10/26/22 20:59 Last Admin: 09/30/22 09:52 Dose: 25 mg (5) Closed rib fracture Encounter type: initial encounter Laterality: left Rib fracture type: multiple ribs Qualified Code(s): S22.42XA - Multiple fractures of ribs, left side, initial encounter for closed fracture
--- NOTE | 2022-09-30 15:39 | Cardiology Progress Note ---
Date of Service September 30, 2022 Assessment & Plan (1) New onset a-fib: (2) Ambulatory dysfunction: (3) Frequent falls: (4) Pleural effusion: (5) HFrEF (heart failure with reduced ejection fraction): Plan IMPRESSION: Frail 77 year old female with history of severe essential tremor noting frequent falls and BROWNLEE. Recent rib fractures and chest contusion Found to be in new onset AFIB with RVR. Echocardiogram demonstrated moderate diffuse LV dysfunction (30-35%) with b iatrial enlargement. [id number] score of 3 (age 3, female)- stroke risk of about 3.2% per year with AFIB PLAN: * Transition from heparin to Eliquis tonight. Dr. Oreilly had discussed risks and benefits of anticoagulation with pt and on 09/29/22 and patient and in favor of anticoagulation. * Rate control: metoprolol succinate 100 mg BID, digoxin 0.125 mg daily. * Lisinopril 2.5 mg daily given low LVEF * Lidoderm patch for chest wall pain Admission and Anticipated Discharge Date Admission Date: September 26, 2022 Subjective Patient seen in follow up. Remains in atrial fibrillation, however rates are well controlled with AF in the 90s noted on telemetry. Only complaint is left rib pain from fall. Physical Exam Constitutional: + thin and + frail appearing; no acute distress Neck: normal visual inspection and trachea midline Respiratory: normal respiratory effort; no cough Auscultation: + diminished lung sounds; no rales Cardiovascular: Rate/Rhythm: + irregularly irregular Heart Sounds: normal S1 and normal S2; no murmur Vessels: no JVD Extremities: no edema Gastrointestinal (Abdomen): normal bowel sounds, soft, nontender, no hepatosplenomegaly Skin: no rashes, warm and dry Neurologic: Motor/Sensory: + tremor (severe) Psychiatric: A+Ox3, euthymic affect (at times forgetful) Motor Behavior: + tremor Results & Data Vital Signs (Past 12 Hours) Vital Signs Temp Pulse Pulse Resp BP Pulse Ox O2 Del Method 09/30/22 07:00 107 H 09/30/22 12:10 36.4 C L 85 18 110/75 90 Room Air 09/30/22 07:40 36.6 C 94 H 18 115/75 91 Room Air 09/30/22 03:47 37.0 C 90 18 108/83 91 Room Air Laboratory Results Coagulation 09/30/22 Range/Units 07:33 APTT 52.0 H* (21.0-31.0) Seconds Comprehensive Metabolic Panel 09/30/22 Range/Units 07:33 Sodium 140 (136-145) mmol/L Potassium 3.6 (3.5-5.1) mmol/L Chloride 109 H (98-107) mmol/L Carbon Dioxide 25 (21-32) mmol/L BUN 22 (6-23) mg/dl Creatinine 0.73 (0.6-1.2) mg/dl Glucose 100 H (70-99(Fasting)) mg/dl Calcium 8.5 L (8.6-10.3) mg/dl Intake and Output 09/30/22 09/30/22 09/30/22 06:59 14:59 22:59 Intake Total 480 / 684.917 205.133 / 205.133 Output Total 550 / 550 200 / 200 Balance -70 / 134.917 5.133 / 5.133 Intake: IV 205.133 / 205.133 Heparin Sodium/Dextrose 25,000 155.133 / 155.133 units In 500 ml @ 650 UNITS/HR 13 mls/hr IV .Q24H [facility] Rx#: [id number] cefTRIAXone SODIUM 1,000 mg In 50 / 50 Dextrose 5% Ad-Van 50 ml @ 100 mls/hr IV Q24H [facility] Rx#:[id number] Oral 480 / 480 Output: Urine 550 / 550 200 / 200 Other: Weight 56 kg Weight Measurement Method Built in [facility]
[2022-09-30] MEDS: DIGOXIN 0.125 MG TAB PO SCH (17:52)
[2022-09-30] MEDS: APIXABAN 5 MG TABLET PO SCH (21:03)
[2022-09-30] MEDS: NORTRIPTYLINE HCL 10 MG CAP PO SCH (21:04)
[2022-09-30] MEDS: HEPARIN SODIUM/DEXTROSE 25,000 UNITS/500 ML BAG IV SCH (21:52)
[2022-10-01] MEDS: oxyCODONE HCL IR 5 MG TAB (IMMEDIATE RELEASE) PO PRN ×3 (01:41→14:28)
[2022-10-01 06:54] LABS: Hematocrit (blood only) 38.6 % (37.0-47.0); Hemoglobin 13.3 g/dl (12.0-16.0); Mean Corpuscular Hemoglobin 34.5 pg (25.0-34.0); Mean Corpuscular Hgb Conc 34.5 g/dL (32.0-36.0); Platelet Count 100 K/uL (130-400); RDW Coefficient of Variation 13.2 % (11.5-14.5); RDW Standard Deviation 48.4 fL (36.4-46.3); Red Blood Count 3.86 M/uL (4.20-5.40); White Blood Count 4.29 K/ul (4.8-10.8)
[2022-10-01 07:12] LABS: BUN Creatinine Ratio 27.3 (10-20); Calcium 8.6 mg/dl (8.6-10.3); Creatinine Clr Calc Pharmacy 49.2 ml/min; Est GFR (African American) 86.9 ml/min; Potassium 4.3 mmol/L (3.5-5.1)
[2022-10-01 07:28] LABS: Partial Thromboplastin Ratio 1.1; Partial Thromboplastin Time 32.2 Seconds (21.0-31.0)
[2022-10-01] MEDS: lisinopril 2.5 MG TAB PO SCH (08:10)
[2022-10-01] MEDS: APIXABAN 5 MG TABLET PO SCH ×2 (08:10→21:25)
[2022-10-01] MEDS: TOPIRAMATE 25 MG TAB PO SCH ×2 (08:10→21:25)
[2022-10-01] MEDS: PANTOprazole 40 MG TAB PO SCH (08:10)
[2022-10-01] MEDS: METOPROLOL SUCC 50MG EXT REL TAB PO SCH ×2 (08:10→21:26)
[2022-10-01] MEDS: PRIMIDONE 50 MG TAB PO SCH ×3 (08:10→21:27)
[2022-10-01] MEDS: CEROVITE ADV FORMULA TAB PO SCH (08:10)
[2022-10-01] MEDS: LIDOCAINE 5% 1 PATCH TD SCH (08:10)
[2022-10-01] MEDS: cefTRIAXone SODIUM 1,000 MG in DEXTROSE 5% AD-VAN 50 ML IV SCH (12:42)
--- NOTE | 2022-10-01 15:16 | Hospitalist Progress Note ---
Date of Service October 01, 2022 Assessment & Plan (1) Atrial fibrillation with rapid ventricular response: Plan: Presented to ER with worsening shortness of breath and noted to have A-fib with RVR Heart rate has been reasonably controlled with current medication Cardiology adjusting her medications for rate control-currently on metoprolol, digoxin. Also on heparin drip for anticoagulation. Per cardiology who discussed with family, they would like to proceed with full anticoagulation- and will start on eliquis. Echocardiogram demonstrated moderate diffuse LV dysfunction (30-35%) with biatrial enlargement. [id number] score of 3 (age 3, female)- stroke risk of about 3.2% per year with AFIB Was on heparin and then changed to Eliquis since last night 09/30/2022 Heart rate is controlled Remains medically stable (2) Fall: Plan: Multiple recent falls. Likely multiple factors contributing. PT/OT evaluation-recommended rehab (3) Ambulatory dysfunction: Plan: PT/OT as above (4) HFrEF (heart failure with reduced ejection fraction): Plan: Currently compensated- started on GDMT- gradual uptitration as tolerated. (5) Closed rib fracture: Plan: 2/2 recent fall. Cont supportive care with lidocaine patch. Tylenol or other pain meds as needed. Still has left lateral chest wall pain Will take some time to heal-discussed with the patient (6) Essential tremor: Plan: Chronic, stable. May be contributing to falls. Continues on primidone per home regimen. (7) Migraine: Plan: chronic, stable. No migraine at this time. Cont topamax and nortriptyline per home regimen. Does not have any more headache (8) UTI (urinary tract infection): Plan: Urine culture with Laquita-started on Rocephin We will discontinue Rocephin on 24 of this month Plan DVT proph: heparin drip -> Eliquis Full Code Dispo-anticipate discharge in 1 to 2 days. PT OT recommended home health PT at discharge Admission and Anticipated Discharge Date Admission Date: September 26, 2022 Subjective 10/01/2022 The patient was seen and examined in telemetry unit in presence of the She was admitted with history of fall and shortness of breath and noted to have A-fib with RVR She has been stable as of today and denies any chest pain, shortness of breath or palpitation She does have benign essential tremor that has been ongoing for years Denies any headache secondary to migraine Review of Systems Review of Systems: All systems reviewed and are unremarkable except as noted below Physical Exam Physical Exam: Lying in bed comfortably Constitutional: + ill appearing and average body habitus Eyes: PERRL, conjunctivae normal, anicteric sclerae ENMT: external ear and nose normal, oropharynx normal Neck: trachea midline, no thyromegaly Respiratory: + respiratory distress Auscultation: + diminished lung sounds and + crackles (Minimal crackles at the bases) Cardiovascular: Rate/Rhythm: + irregularly irregular; not tachycardic Heart Sounds: normal S1, normal S2 and + murmur (2/6 ESM over precordium) Extremities: + edema (Trace edema bilaterally) Gastrointestinal (Abdomen): Inspection/Auscultation: normal bowel sounds; abdomen not distended Percussion/Palpation: abdomen soft; abdomen nontender Musculoskeletal: No acute arthritis involving any joint Neurologic: Alert, awake and oriented x3. Generally weak. Has moderate to severe benign essential tremor Lymphatic: no cervical or axillary lymphadenopathy Results & Data Results & Data Vital Signs (Past 12 Hours) Vital Signs Temp Pulse Pulse Resp BP Pulse Ox O2 Del Method 10/01/22 11:48 36.8 C 97 H 18 117/78 94 Room Air 10/01/22 07:28 36.8 C 104 H 18 122/81 92 Room Air 10/01/22 07:00 88 10/01/22 03:12 37 C 90 18 113/70 96 Room Air Laboratory Results Short CBC 10/01/22 Range/Units 06:31 WBC 4.29 L (4.8-10.8) K/ul Hgb 13.3 (12.0-16.0) g/dl Hct 38.6 (37.0-47.0) % Plt Count 100 L (130-400) K/uL BMP 10/01/22 06:31 Sodium 139 Potassium 4.3 Chloride 107 Carbon Dioxide 28 BUN 21 Creatinine 0.77 Glucose 90 Calcium 8.6 Medications Administered Current Inpatient Medications Acetaminophen (Acetaminophen 325 Mg Tab) 650 mg PO Q4H PRN PRN Reason: pain/fever Stop: 10/26/22 16:19 Last Admin: 09/30/22 06:06 Dose: 650 mg Apixaban (Apixaban 5 Mg Tablet) 5 mg PO BID [facility] Stop: 10/30/22 20:59 Last Admin: 10/01/22 08:10 Dose: 5 mg Calcium Carbonate (Calcium Carbonate 500 Mg Chewable Tab) 1,500 mg PO BID PRN PRN Reason: Indigestion Stop: 10/29/22 16:18 Last Admin: 09/30/22 09:53 Dose: 1,500 mg Digoxin (Digoxin 0.125 Mg Tab) 0.125 mg PO DAILY@1600 [facility] Stop: 10/29/22 15:59 Last Admin: 09/30/22 17:52 Dose: 0.125 mg Fentanyl Citrate (Fentanyl Citrate Pf 100 Mcg/2 Ml Vial) 50 mcg IV Q15M PRN PRN Reason: Pain Stop: 10/10/22 10:12 Last Admin: 09/26/22 10:45 Dose: 50 mcg Ceftriaxone Sodium 1,000 mg/ (Dextrose) 50 mls @ 100 mls/hr IV Q24H [facility]; Protocol Stop: 10/04/22 11:29 Last Infusion: 10/01/22 14:06 Dose: Infused Lidocaine (Lidocaine 5% 1 Patch) 1 patch TD QAM [facility] Stop: 10/26/22 16:19 Last Admin: 10/01/22 08:10 Dose: 1 patch Lisinopril (Lisinopril 2.5 Mg Tab) 2.5 mg PO QAM [facility] Stop: 10/29/22 10:44 Last Admin: 10/01/22 08:10 Dose: 2.5 mg Metoprolol Succinate (Metoprolol Succ 50mg Ext Rel Tab) 100 mg PO BID [facility] Stop: 10/28/22 20:59 Last Admin: 10/01/22 08:10 Dose: 100 mg Miscellaneous (Remove Lidoderm Patch) 1 each N/A DAILY@2100 [facility] Stop: 10/26/22 20:59 Last Admin: 09/30/22 21:07 Dose: Not Given Multivitamins/Minerals (Cerovite Adv Formula Tab) 1 tab PO DAILY [facility] Stop: 10/27/22 08:59 Last Admin: 10/01/22 08:10 Dose: 1 tab Nortriptyline HCl (Nortriptyline Hcl 10 Mg Cap) 20 mg PO HS [facility] Stop: 10/26/22 20:59 Last Admin: 09/30/22 21:04 Dose: 20 mg Oxycodone HCl (Oxycodone Hcl Ir 5 Mg Tab (Immediate Release)) 5 mg PO Q6H PRN PRN Reason: Severe Pain (Scale 7, 8, 9,10) Stop: 10/12/22 08:49 Last Admin: 10/01/22 14:28 Dose: 5 mg Pantoprazole Sodium (Pantoprazole 40 Mg Tab) 40 mg PO QAM [facility] Stop: 10/27/22 13:59 Last Admin: 10/01/22 08:10 Dose: 40 mg Polyethylene Glycol (Polyethylene (Miralax) 17 Gm Pack) 17 gm PO DAILY PRN PRN Reason: constipation Stop: 10/26/22 16:19 Primidone (Primidone 50 Mg Tab) 150 mg PO TID [facility] Stop: 10/26/22 16:19 Last Admin: 10/01/22 12:42 Dose: 150 mg Topiramate (Topiramate 25 Mg Tab) 25 mg PO BID [facility] Stop: 10/26/22 20:59 Last Admin: 10/01/22 08:10 Dose: 25 mg (5) Closed rib fracture Encounter type: initial encounter Laterality: left Rib fracture type: multiple ribs Qualified Code(s): S22.42XA - Multiple fractures of ribs, left side, initial encounter for closed fracture
--- NOTE | 2022-10-01 16:16 | Cardiology Progress Note ---
Date of Service October 01, 2022 Assessment & Plan (1) New onset a-fib: (2) Ambulatory dysfunction: (3) Frequent falls: (4) Pleural effusion: (5) HFrEF (heart failure with reduced ejection fraction): Plan IMPRESSION: Frail 77 year old female with history of severe essential tremor noting frequent falls and BROWNLEE. Recent rib fractures and chest contusion Found to be in new onset AFIB with RVR. Echocardiogram demonstrated moderate diffuse LV dysfunction (30-35%) with b iatrial enlargement. [id number] score of 3 (age 3, female)- stroke risk of about 3.2% per year with AFIB PLAN: * Now on Eliquis 5 mg twice daily having received initial dose in the evening of 09/30/2022 * Rate control: metoprolol succinate 100 mg BID, digoxin 0.125 mg daily. * Lisinopril 2.5 mg daily given low LVEF * Lidoderm patch for chest wall pain Admission and Anticipated Discharge Date Admission Date: September 26, 2022 Subjective Patient seen in cardiology follow-up. No cardiac complaints. Remains in atrial fibrillation with rates in the 90s to low 100s. Only subjective complaint is left-sided rib pain when her pain may medication wears off. Physical Exam Constitutional: + thin and + frail appearing; no acute distress Neck: normal visual inspection and trachea midline Respiratory: normal respiratory effort; no cough Auscultation: + diminished lung sounds; no rales Cardiovascular: Rate/Rhythm: + irregularly irregular Heart Sounds: normal S1 and normal S2; no murmur Vessels: no JVD Extremities: no edema Gastrointestinal (Abdomen): normal bowel sounds, soft, nontender, no hepatosplenomegaly Skin: no rashes, warm and dry Neurologic: Motor/Sensory: + tremor (severe) Psychiatric: A+Ox3, euthymic affect (at times forgetful) Motor Behavior: + tremor Results & Data Vital Signs (Past 12 Hours) Vital Signs Temp Pulse Pulse Resp BP Pulse Ox O2 Del Method 10/01/22 15:45 36.6 C 108 H 18 112/75 91 Room Air 10/01/22 11:48 36.8 C 97 H 18 117/78 94 Room Air 10/01/22 07:28 36.8 C 104 H 18 122/81 92 Room Air 10/01/22 07:00 88 Laboratory Results Coagulation 10/01/22 Range/Units 06:31 APTT 32.2 H (21.0-31.0) Seconds CBC 10/01/22 Range/Units 06:31 WBC 4.29 L (4.8-10.8) K/ul RBC 3.86 L (4.20-5.40) M/uL Hgb 13.3 (12.0-16.0) g/dl Hct 38.6 (37.0-47.0) % Plt Count 100 L (130-400) K/uL Comprehensive Metabolic Panel 10/01/22 Range/Units 06:31 Sodium 139 (136-145) mmol/L Potassium 4.3 (3.5-5.1) mmol/L Chloride 107 (98-107) mmol/L Carbon Dioxide 28 (21-32) mmol/L BUN 21 (6-23) mg/dl Creatinine 0.77 (0.6-1.2) mg/dl Glucose 90 (70-99(Fasting)) mg/dl Calcium 8.6 (8.6-10.3) mg/dl Intake and Output 10/01/22 10/01/22 10/01/22 06:59 14:59 22:59 Intake Total 500 / 884.749 50 / 650 600 / 650 Output Total 200 / 500 501 / 501 Balance 300 / 384.749 -451 / 149 600 / 149 Intake: IV 50 / 50 cefTRIAXone SODIUM 1,000 mg In 50 / 50 Dextrose 5% Ad-Van 50 ml @ 100 mls/hr IV Q24H [facility] Rx#:[id number] Oral 500 / 500 600 / 600 Output: Urine 200 / 500 500 / 500 # Bowel Movements Other: Weight 59 kg Weight Measurement Method Built in [facility]
[2022-10-01] MEDS: DIGOXIN 0.125 MG TAB PO SCH (17:35)
[2022-10-01] MEDS: NORTRIPTYLINE HCL 10 MG CAP PO SCH (21:26)
[2022-10-02] MEDS: oxyCODONE HCL IR 5 MG TAB (IMMEDIATE RELEASE) PO PRN ×2 (00:57→14:04)
[2022-10-02 06:52] LABS: Basophils # (auto) 0.02 K/uL (0-0.2); Basophils % (auto) 0.7 %; Eosinophils # (auto) 0.06 K/uL (0-0.50); Hematocrit (blood only) 38.7 % (37.0-47.0); Hemoglobin 13.4 g/dl (12.0-16.0); Immature Granulocytes # (auto) 0.01 K/uL (0.01-0.20); Immature Granulocytes % (auto) 0.3 %; Lymphocytes # (auto) 0.86 K/uL (1.2-3.4); Lymphocytes % (auto) 28.9 %; Mean Corpuscular Hemoglobin 33.9 pg (25.0-34.0); Mean Corpuscular Hgb Conc 34.6 g/dL (32.0-36.0); Mean Platelet Volume 12.2 fL (9.4-12.4); Monocytes # (auto) 0.35 K/uL (0.11-0.59); Monocytes % (auto) 11.7 %; Neutrophils # (auto) 1.68 K/uL (1.40-6.50); Neutrophils % (auto) 56.4 %; Platelet Count 118 K/uL (130-400); RDW Coefficient of Variation 13.2 % (11.5-14.5); RDW Standard Deviation 47.3 fL (36.4-46.3); Red Blood Count 3.95 M/uL (4.20-5.40); White Blood Count 2.98 K/ul (4.8-10.8)
[2022-10-02 06:58] LABS: BUN Creatinine Ratio 23.4 (10-20); Calcium 8.7 mg/dl (8.6-10.3); Creatinine Clr Calc Pharmacy 49.2 ml/min; Est GFR (African American) 86.9 ml/min; Potassium 4.3 mmol/L (3.5-5.1)
[2022-10-02 07:11] LABS: Partial Thromboplastin Ratio 1.2; Partial Thromboplastin Time 33.6 Seconds (21.0-31.0)
[2022-10-02] MEDS: APIXABAN 5 MG TABLET PO SCH (09:26)
[2022-10-02] MEDS: LIDOCAINE 5% 1 PATCH TD SCH (09:28)
[2022-10-02] MEDS: lisinopril 2.5 MG TAB PO SCH (09:28)
[2022-10-02] MEDS: CEROVITE ADV FORMULA TAB PO SCH (09:29)
[2022-10-02] MEDS: METOPROLOL SUCC 50MG EXT REL TAB PO SCH (09:29)
[2022-10-02] MEDS: PANTOprazole 40 MG TAB PO SCH (09:29)
[2022-10-02] MEDS: PRIMIDONE 50 MG TAB PO SCH ×2 (09:29→14:02)
[2022-10-02] MEDS: TOPIRAMATE 25 MG TAB PO SCH (09:30)
[2022-10-02] MEDS: cefTRIAXone SODIUM 1,000 MG in DEXTROSE 5% AD-VAN 50 ML IV SCH (12:21)
--- NOTE | 2022-10-02 13:01 | Hospitalist Progress Note ---
Date of Service October 02, 2022 Assessment & Plan (1) Atrial fibrillation with rapid ventricular response: Plan: Presented to ER with worsening shortness of breath and noted to have A-fib with RVR Heart rate has been reasonably controlled with current medication Cardiology adjusting her medications for rate control-currently on metoprolol, digoxin. Also on heparin drip for anticoagulation. Per cardiology who discussed with family, they would like to proceed with full anticoagulation- and will start on eliquis. Echocardiogram demonstrated moderate diffuse LV dysfunction (30-35%) with biatrial enlargement. [id number] score of 3 (age 3, female)- stroke risk of about 3.2% per year with AFIB Was on heparin and then changed to Eliquis since last night 09/30/2022 Heart rate is controlled Remains medically stable Denies any cardiac symptoms. No palpitation, chest pain or shortness of breath (2) Fall: Plan: Multiple recent falls. Likely multiple factors contributing. PT/OT evaluation-recommended rehab She will be going to [facility] this afternoon if accepted (3) Ambulatory dysfunction: Plan: PT/OT as above-recommended rehab (4) HFrEF (heart failure with reduced ejection fraction): Plan: Currently compensated- started on GDMT- gradual uptitration as tolerated. (5) Closed rib fracture: Plan: 2/2 recent fall. Cont supportive care with lidocaine patch. Tylenol or other pain meds as needed. Still has left lateral chest wall pain Will take some time to heal-discussed with the patient Pain is controlled (6) Essential tremor: Plan: Chronic, stable. May be contributing to falls. Continues on primidone per home regimen. (7) Migraine: Plan: chronic, stable. No migraine at this time. Cont topamax and nortriptyline per home regimen. Does not have any more headache (8) UTI (urinary tract infection): Plan: Urine culture with Kluvjojoa-started on Rocephin We will discontinue Rocephin on of this month Will give oral Keflex to finish the course for the next 2 days Plan DVT proph: heparin drip -> Eliquis Full Code Dispo-anticipate discharge in 1 to 2 days. The patient will likely be discharged to [facility] this afternoon Admission and Anticipated Discharge Date Admission Date: September 26, 2022 Subjective 10/01/2022 The patient was seen and examined in telemetry unit in presence of the She was admitted with history of fall and shortness of breath and noted to have A-fib with RVR She has been stable as of today and denies any chest pain, shortness of breath or palpitation She does have benign essential tremor that has been ongoing for years Denies any headache secondary to migraine 10/02/2022 The patient was seen and examined in telemetry unit in presence of the She has been feeling much better though he still has profound benign essential tremors Denies any chest pain, palpitation or shortness of breath Review of Systems Review of Systems: All systems reviewed and are unremarkable except as noted below Physical Exam Physical Exam: Lying in bed comfortably Constitutional: + ill appearing and average body habitus Eyes: PERRL, conjunctivae normal, anicteric sclerae ENMT: external ear and nose normal, oropharynx normal Neck: trachea midline, no thyromegaly Respiratory: + respiratory distress Auscultation: + diminished lung sounds and + crackles (Minimal crackles at the bases) Cardiovascular: Rate/Rhythm: + irregularly irregular; not tachycardic Heart Sounds: normal S1, normal S2 and + murmur (2/6 ESM over precordium) Extremities: + edema (Trace edema bilaterally) Gastrointestinal (Abdomen): Inspection/Auscultation: normal bowel sounds; abdomen not distended Percussion/Palpation: abdomen soft; abdomen nontender Musculoskeletal: No acute arthritis involving any joint Neurologic: Alert awake and oriented x3. Significant benign essential tremors Lymphatic: no cervical or axillary lymphadenopathy Results & Data Results & Data Vital Signs (Past 12 Hours) Vital Signs Temp Pulse Resp BP Pulse Ox O2 Del Method 10/02/22 11:18 37 C 80 18 109/78 93 Room Air 10/02/22 07:42 36.6 C 86 18 138/89 94 Room Air 10/02/22 03:55 36.3 C L 81 20 108/68 93 Room Air Laboratory Results Short CBC 10/02/22 Range/Units 05:28 WBC 2.98 L (4.8-10.8) K/ul Hgb 13.4 (12.0-16.0) g/dl Hct 38.7 (37.0-47.0) % Plt Count 118 L (130-400) K/uL BMP 10/02/22 05:28 Sodium 139 Potassium 4.3 Chloride 106 Carbon Dioxide 29 BUN 18 Creatinine 0.77 Glucose 81 Calcium 8.7 Medications Administered Current Inpatient Medications Acetaminophen (Acetaminophen 325 Mg Tab) 650 mg PO Q4H PRN PRN Reason: pain/fever Stop: 10/26/22 16:19 Last Admin: 09/30/22 06:06 Dose: 650 mg Apixaban (Apixaban 5 Mg Tablet) 5 mg PO BID [facility] Stop: 10/30/22 20:59 Last Admin: 10/02/22 09:26 Dose: 5 mg Calcium Carbonate (Calcium Carbonate 500 Mg Chewable Tab) 1,500 mg PO BID PRN PRN Reason: Indigestion Stop: 10/29/22 16:18 Last Admin: 09/30/22 09:53 Dose: 1,500 mg Digoxin (Digoxin 0.125 Mg Tab) 0.125 mg PO DAILY@1600 [facility] Stop: 10/29/22 15:59 Last Admin: 10/01/22 17:35 Dose: 0.125 mg Fentanyl Citrate (Fentanyl Citrate Pf 100 Mcg/2 Ml Vial) 50 mcg IV Q15M PRN PRN Reason: Pain Stop: 10/10/22 10:12 Last Admin: 09/26/22 10:45 Dose: 50 mcg Ceftriaxone Sodium 1,000 mg/ (Dextrose) 50 mls @ 100 mls/hr IV Q24H [facility]; Protocol Stop: 10/04/22 11:29 Last Infusion: 10/02/22 12:54 Dose: Infused Lidocaine (L[facility]ocaine 5% 1 Patch) [facility] 10/26/22 16:19 Last Admin: 10/02/22 09:28 Dose: 1 patch Lisinopril (Lisinopril 2.5 Mg Tab) 2.5 mg PO QAM [facility] Stop: 10/29/22 10:44 Last Admin: 10/02/22 09:28 Dose: 2.5 mg Metoprolol Succinate (Metoprolol Succ 50mg Ext Rel Tab) 100 mg PO BID [facility] Stop: 10/28/22 20:59 Last Admin: 10/02/22 09:29 Dose: 100 mg Miscellaneous (Remove Lidoderm Patch) 1 each N/A DAILY@2100 [facility] Stop: 10/26/22 20:59 Last Admin: 10/01/22 21:29 Dose: Not Given Multivitamins/Minerals (Cerovite Adv Formula Tab) 1 tab PO DAILY [facility] Stop: 10/27/22 08:59 Last Admin: 10/02/22 09:29 Dose: 1 tab Nortriptyline HCl (Nortriptyline Hcl 10 Mg Cap) 20 mg PO HS [facility] Stop: 10/26/22 20:59 Last Admin: 10/01/22 21:26 Dose: 20 mg Oxycodone HCl (Oxycodone Hcl Ir 5 Mg Tab (Immediate Release)) 5 mg PO Q6H PRN PRN Reason: Severe Pain (Scale 7, 8, 9,10) Stop: 10/12/22 08:49 Last Admin: 10/02/22 00:57 Dose: 5 mg Pantoprazole Sodium (Pantoprazole 40 Mg Tab) 40 mg PO QAM [facility] Stop: 10/27/22 13:59 Last Admin: 10/02/22 09:29 Dose: 40 mg Polyethylene Glycol (Polyethylene (Miralax) 17 Gm Pack) 17 gm PO DAILY PRN PRN Reason: constipation Stop: 10/26/22 16:19 Primidone (Primidone 50 Mg Tab) 150 mg PO TID [facility] Stop: 10/26/22 16:19 Last Admin: 10/02/22 09:29 Dose: 150 mg Topiramate (Topiramate 25 Mg Tab) 25 mg PO BID [facility] Stop: 10/26/22 20:59 Last Admin: 10/02/22 09:30 Dose: 25 mg (5) Closed rib fracture Encounter type: initial encounter Laterality: left Rib fracture type: multiple ribs Qualified Code(s): S22.42XA - Multiple fractures of ribs, left side, initial encounter for closed fracture
[2022-10-02] MEDS: DIGOXIN 0.125 MG TAB PO SCH (16:25)
[2022-10-02] MEDS ORDERED: cephALEXin 500 MG CAP PO SCH (21:00)
--- NOTE | 2022-10-03 07:24 | Discharge Summary ---
Date of Service October 03, 2022 Admission HPI Per Admitting Provider Pt is a 77 y/o F with hx of essential tremor, Migraine, memory loss (no official dx of dementia) and recent hx of fall with multiple L chest wall ribs fracture (1 month ago) came to the ER with worsening SOB. Per pt and pt was doing better with the rib fracture but pt had another mechanical fall 5 days ago since then pt has been having worsening SOB and L mid posterior back pain with ambulatory dysfunction. During the fall: no LOC or Head trauma. Denied any palpitation or dizziness or CP prior to fall. Denied any hx of FL, CVA, CAD, GI bleed or prior hx of afib. Pt is taking multiple medications for essential tremor but still having slight worsening of tremor per ER course: Dilt 10x2 (for afib with RVR), fentanyl, Zofran, Mg sul 1g and 1L NS CT chest (08/25/2022): 1. Acute to subacute appearing minimally displaced fractures or with angulation deformities of the left 4th-7th ribs. No pneumothorax or hemothorax. 2. Small effusions, right greater than left. Admission Exam Per Admitting Provider Physical Exam: General:.NAD, well developed, well nourished, average body habitus HEENT:.Normocephalic and atraumatic, Normal Conjunctiva, EOMI, Sclera is non- icteric Lungs:.b/l lower lobe rales,No signs of respiratory distress, no wheezing Heart:.in afib Abdominal:.ND, Soft, NT MSK:.TTP of the L lateral chest wall, no chest wall deformities,No leg edema Psych:AAOx2 (person and place), normal affect Principal Diagnosis A-fib with RVR, recurrent falls with closed rib fractures on the left side, benign essential tremor, UTI Discharge Exam Lying in bed comfortably Constitutional + ill appearing and average body habitus Eyes PERRL, conjunctivae normal, anicteric sclerae ENMT external ear and nose normal, oropharynx normal Neck trachea midline, no thyromegaly Respiratory + respiratory distress Auscultation: + diminished lung sounds and + crackles (Minimal crackles at the bases) Cardiovascular Rate/Rhythm: + irregularly irregular; not tachycardic Heart Sounds: normal S1, normal S2 and + murmur (2/6 ESM over precordium) Extremities: + edema (Trace edema bilaterally) Gastrointestinal (Abdomen) Inspection/Auscultation: normal bowel sounds; abdomen not distended Percussion/Palpation: abdomen soft; abdomen nontender Lymphatic no cervical or axillary lymphadenopathy Discharge Data Allergies Allergy/AdvReac Type Severity Reaction Status Date / Time No Known Allergies Allergy Unverified 09/26/22 13:40 Consultations 09/26/22 12:52 ED Decision to Admit Stat 09/26/22 16:20 Consult Cardiology Routine Ordered Studies 09/26/22 10:14 CT abd pelvis IV con only Stat CT cervical spine wo con Stat CT head/brain wo con Stat 09/26/22 10:18 CT angio chest PE protocol Stat Hospital Course (1) Atrial fibrillation with rapid ventricular response: Presented to ER with worsening shortness of breath and noted to have A-fib with RVR Heart rate has been reasonably controlled with current medication Cardiology adjusting her medications for rate control-currently on metoprolol, digoxin. Also on heparin drip for anticoagulation. Per cardiology who discussed with family, they would like to proceed with full anticoagulation- and will start on eliquis. Echocardiogram demonstrated moderate diffuse LV dysfunction (30-35%) with biatrial enlargement. [id number] score of 3 (age 3, female)- stroke risk of about 3.2% per year with AFIB Was on heparin and then changed to Eliquis since last night 09/30/2022 Heart rate is controlled Remains medically stable Denies any cardiac symptoms. No palpitation, chest pain or shortness of breath (2) Fall: Multiple recent falls. Likely multiple factors contributing. PT/OT evaluation-recommended rehab She will be going to [facility] this afternoon if accepted (3) Ambulatory dysfunction: PT/OT as above-recommended rehab (4) HFrEF (heart failure with reduced ejection fraction): Currently compensated- started on GDMT- gradual uptitration as tolerated. (5) Closed rib fracture: 2/2 recent fall. Cont supportive care with lidocaine patch. Tylenol or other pain meds as needed. Still has left lateral chest wall pain Will take some time to heal-discussed with the patient Pain is controlled (6) Essential tremor: Chronic, stable. May be contributing to falls. Continues on primidone per home regimen. (7) Migraine: chronic, stable. No migraine at this time. Cont topamax and nortriptyline per home regimen. Does not have any more headache (8) UTI (urinary tract infection): Urine culture with Viviana-started on Rocephin We will discontinue Rocephin on of this month Will give oral Keflex to finish the course for the next 2 days Plan DVT proph: heparin drip -> Eliquis Full Code Dispo-anticipate discharge in 1 to 2 days. The patient will likely be discharged to [facility] this afternoon Total Time Total Time Spent Total Time Spent (In Minutes): 35 minutes Discharge Plan Discharge Items Patient Disposition: Transfer Inpatient Rehab Fac Reason For Visit: FALL ANDNEW ONSET AFIB Discharge Diagnosis: A-fib with RVR, recurrent falls with closed rib fractures on the left side, benign essential tremor, UTI Condition on Discharge: Fair Activity: Resume your previous activity Non-emergency contact: Primary Care Provider Call non-emergency contact if: you have any medication questions and your symptoms worsen Follow-up/Referrals: Erick Ramos MD [Primary Care Provider] - (Date & Time 10/05/2022 2:00 PM Provider Joya Camejo, Department [facility] ) Diet: Heart Healthy Diet Texture: Dental soft (bite-sized) Addtl Attending Provider Instructions: Please take precautions to avoid falls Finish the course of antibiotic as advised Take your medications as advised Keep appointment with your healthcare provider Pending Studies at Discharge: No Stand-Alone Forms: My [facility] Skilled Items Patient informed of condition?: Yes DNR: No Discharge Level of Care: Acute rehab Communicable Disease: No Discharge Prognosis: Stable Lines: None Urinary Catheter: No Medications and DC Order Prescriptions: New metoprolol succinate 50 mg Tablet Extended Release 24 Hr 100 mg PO BID 30 Days Qty: 120 0RF cephalexin 500 mg Capsule 500 mg PO BID 2 Days Qty: 4 0RF pantoprazole 40 mg Tablet,Delayed Release (Dr/Ec) 40 mg PO QAM 30 Days Qty: 30 0RF lidocaine 5 % Adhesive Patch,Medicated 1 patch transdermal QAM 30 Days Qty: 30 0RF digoxin [Digitek] 125 mcg (0.125 mg) Tablet 0.125 mg PO DAILY@1600 30 Days Qty: 30 0RF lisinopril 2.5 mg Tablet 2.5 mg PO QAM 30 Days Qty: 30 0RF oxycodone 5 mg Tablet 5 mg PO Q6H PRN (Reason: pain) 5 Days Qty: 20 0RF Eliquis 5 mg Tablet 5 mg PO BID 30 Days Qty: 60 0RF furosemide [Lasix] 20 mg tablet 20 mg PO UD Qty: 20 0RF Rx Instructions: Sunday, Sunday and Sunday (three times a week) Continued primidone 50 mg tablet 150 mg PO TID topiramate 25 mg tablet 25 mg PO BID nortriptyline 10 mg capsule 20 mg PO HS calcium carbonate 500 mg calcium (1,250 mg) Tablet,Chewable 500 mg PO DAILY PRN (Reason: Acid Reflux) polyethylene glycol 3350 [Miralax] 17 gram/dose Powder 17 g PO DAILY PRN (Reason: constipation) One-A-Day Womens Formula 1 tab PO DAILY Discontinued metoprolol succinate 25 mg tablet extended release 24 hr 25 mg PO HS Discharge Orders: Discharge Order (Routine); Ordered 10/02/22 Ordered By: Stacey Fitzgerald Admission Data Admit Date/Time: 09/26/22 13:46 Attending Provider: Stacey Fitzgerald Admit Provider: Gudelia Mejias Primary Care Provider: Erick Ramos Other Providers: Gudelia Mejias ; Rei Oreilly ; Dl Barillas ; [facility] Other Interventions: Discharge Summary Assessment (RN) Last Done: 10/02/22 17:09
== END 2022-10-02 17:30 | DRG 309 ==
LOC: ED 09:37 → SUATTDRO 13:46 → 2S 13:46